=== PATIENT | male | born 1945 | race Caucasian/White ===

== ENCOUNTER 2022-04-07 06:18 | Inpatient (IN) ==
[2022-04-07] MEDS ORDERED: ONDANSETRON INJ 2 MG/ML 2 ML VIAL IV STA (06:38)
--- NOTE | 2022-04-07 06:44 | Emergency Department Note ---
Impression & Plan Abdominal pain, Nausea & vomiting ED Provider Note ED Provider Note NAME: HANNAH MIRELES AGE:76 SEX: Male : 1945 ARRIVES VIA: private vehicle INFORMANT: Patient ED PROVIDER(s): Page Weinberg DO CHIEF COMPLAINT: Abdominal pain, nausea HPI: This is a 76-year-old male presents emerged [place] due to concern for abdominal pain, nausea and vomiting that began earlier in the week. Patient states he underwent prostate surgery by Dr. Foster as an outpatient this past Friday. He states he felt well initially however by Friday started feeling nauseated and began to vomit that evening. He also states he noticed upper abdominal pain in addition to the lower abdominal pain he expected to have postop. He states this morning some of his emesis appeared more brown he did not notice any overt blood. He states he has had minimal to eat but has been trying to drink water to stay hydrated. He states he has had a bowel movement since surgery and it was loose although he states that is not uncommon for him a s he has IBS. No blood noted in his stools. States he has been urinating without difficulty, has intermittently been seeing blood which she was told to expect also. Patient denies any fevers or chills. PAST MEDICAL HISTORY:See Below PAST SURGICAL HISTORY:See Below FAMILY HISTORY:See Below SOCIAL HISTORY:See Below HOME MEDICATIONS:See Below ALLERGIES:See Below VITALS:See Below PHYSICAL EXAMINATION: GENERAL: alert, well appearing, well nourished, no distress, non-toxic EYE EXAM: normal conjunctiva, PERRL and EOM's grossly intact OROPHARYNX: no exudate, no erythema, lips, buccal mucosa, and tongue normal and mucous membranes are moist NECK: supple, no nuchal rigidity, no adenopathy, non-tender LUNGS: Clear to auscultation. Normal chest wall mechanics, no w/r/r HEART: no murmurs, S1 normal and S2 normal ABDOMEN: abdomen soft, non-tender, normo-active bowel sounds, no masses, no rebound or guarding. BACK: Back is symmetrical on inspection and there is no deformity, no midline tenderness, no CVA tenderness. SKIN: no rashes, petechiae, orbruising UPPER EXTREMITIES: upper extremities are grossly normal. FROM, nml pulses b/l. LOWER EXTREMITIES: No pitting edema. FROM, nml pulses b/l. NEURO EXAM: Normal sensorium, cranial nerves II-XII grossly intact, normal speech, no facial droop,nogross weakness of arms, no gross weakness of legs. Gross sensation intact. No ataxia. Vital Signs: reviewed and remarkable Differential Diagnosis: Differential diagnoses includes but is not limited to gastritis, peptic ulcer disease, GERD, gallbladder disease, pancreatitis, small bowel obstruction, ischemic bowel, irritable bowel disease, irritable bowel syndrome, appendicitis, diverticulitis, malignancy, hernia, urinary tract infection, perforation, infectious. MEDICAL DECISION MAKING: This is a 76 yo male who presents to the ER due to concern for nausea/vomiting and abdominal pain s/p prostate surgery. Patient stated he has been sipping water all week but hasn't had much to eat. He then developed vomiting in the last 48 hours. Labs sent and IV established. He was initially given 1 L NSS due to clinical dehydration and felt improved. Labs revealed significant leukocytos is and hyponatremia. He was given cefepime. CT a/p with nonspecific and post op changes. VS stable and pt afebrile. We discussed all results at bedside and need for inpatient evaluation and treatment. Patient mentating well and with a normal neuro exam throughout. Case discussed with hospitalist team. No further IVF given in the ER. No further vomiting. I suspect given increased free water intake, patient with likely dilutional hyponatremia. Consultation(s): [] ER Treatment Provided: See below 0912: Patient updated on results. 1002: [facility] Diagnostics Interpreted By Me: -ECG: [] -Cardiac Monitoring: An order was placed for continuous cardiac monitoring. The monitor shows a rate of 86 with normal sinus rhythm. -Laboratory studies: As stated above and show below. -Imaging studies: [] Triage Nursing Note Reviewed Prior/Outside Records Reviewed Procedures: [] Critical Care: Critical care of 38 min performed to assess and manage high likelihood of life-threatening sepsis and hyponatremia, involving labs and imaging performed with assessment to evaluate sepsis and hyponatremia diagnosis with frequent reassessment. This time includes bedside time, treatment discussions with patient/family/consultants, documentation time and excludes procedure time. Past Med/Surg History Medical History BPH with obstruction/lower urinary tract symptoms Hx of irritable bowel syndrome Hyperlipidemia Hypertension controlled Peripheral neuropathy toes Polycythemia vera Renal cyst no isses with, just monitoring Retinal tear Spleen enlarged Surgical History History of colonoscopy History of cystoscopy History of detached retina repair left History of esophagogastroduodenoscopy (EGD) History of left cataract surgery S/P TURP Family History (Updated 04/07/22 @ 12:53 by Rupali Barnes PA-C) Other Breast cancer Coronary heart disease Stroke Social History Smoking Status: Never smoker Second Hand Exposure: No; Hx Alcohol Use: Yes Alcohol type: wine Hx Substance Use: No Preferred Language: Burkinan Communication Ability: Effective Industrial Hygiene Engineer Required: No Beliefs That Will Affect Care: None marital status: Current Living Situation: Spouse current occupational status: retired How many Children do You have: 2 Feels Safe at Home: Yes Safety Concerns: Feels Safe At This Time Assistive Devices: None Allergies Allergies Allergy/AdvReac Type Severity Reaction Status Date / Time No Known Allergies Allergy Verified 11/28/21 07:40 Home Meds Home Medications Medication Instructions Recorded Confirmed aspirin 81 mg tablet,delayed 81 mg PO QAM 11/05/21 04/07/22 release (Adult Aspirin Regimen) atorvastatin 10 mg tablet 10 mg PO PM 11/05/21 04/07/22 cholecalciferol (vitamin D3) 50 50 mcg PO QAM 11/05/21 04/07/22 mcg (2,000 unit) capsule docusate sodium 100 mg capsule 100 mg PO DAILY PRN Constipation 11/05/21 04/07/22 (Colace) dutasteride 0.5 mg capsule 0.5 mg PO BID 11/05/21 04/07/22 polyethylene glycol 3350 17 17 g PO DAILY PRN Constipation 11/05/21 04/07/22 gram/dose oral powder (Miralax) ruxolitinib 10 mg tablet (Jakafi) 10 mg PO DAILY 11/05/21 04/07/22 valsartan 320 1 tab PO PM 11/05/21 04/07/22 mg-hydrochlorothiazide 25 mg tablet allopurinol 100 mg tablet 100 mg PO DAILY 04/07/22 04/07/22 tamsulosin 0.4 mg capsule 0.4 mg PO DAILY 04/07/22 04/07/22 Previous Rx's Medication Instructions Recorded betamethasone dipropionate 0.05 % 1 applic topical DAILY PRN skin 05/17/20 topical ointment irritation #15 grams Results & Data (ED) Vital Signs Vital Signs - 24 hr 04/07/22 06:25 04/07/22 07:00 04/07/22 09:00 Temperature 36.6 C Temperature Source Temporal Artery Scan Pulse Rate 106 H Pulse Rate [Right Finger] 83 93 H Pulse Rhythm [Right Finger] Regular Regular Pulse Strength [Right Finger] Normal Normal Respiratory Rate 18 18 18 Respiratory Effort / Characteristics Non-Labored Non-Labored Respiratory Depth Normal Normal Normal Respiratory Pattern Regular Regular Blood Pressure 183/77 H Blood Pressure [Right Arm] 160/77 H 138/63 Blood Pressure Mean 112 Blood Pressure Mean [Right Arm] 104 88 Blood Pressure Position [Right Arm] Lying Pulse Oximetry 98 97 97 Oxygen Delivery Method Room Air Room Air Room Air Sepsis Recent Fever Within 48 Hours No Sepsis New/Unexplained Change in Mental Status N/A Sepsis Action Taken by Nursing No Action Required 04/07/22 11:00 Temperature Temperature Source Pulse Rate Pulse Rate [Right Finger] 86 Pulse Rhythm [Right Finger] Regular Pulse Strength [Right Finger] Normal Respiratory Rate 18 Respiratory Effort / Characteristics Non-Labored Respiratory Depth Normal Respiratory Pattern Regular Blood Pressure Blood Pressure [Right Arm] 137/71 Blood Pressure Mean Blood Pressure Mean [Right Arm] 93 Blood Pressure Position [Right Arm] Lying Pulse Oximetry 96 Oxygen Delivery Method Room Air Sepsis Recent Fever Within 48 Hours Sepsis New/Unexplained Change in Mental Status Sepsis Action Taken by Nursing Laboratory Data 04/07/22 06:45 04/07/22 06:45 Lab Results 04/07/22 04/07/22 04/07/22 Range/Units 06:30 06:45 06:45 WBC 23.54 H (4.8-10.8) K/ul RBC 4.35 L (4.63-6.08) M/uL Hgb 13.9 L (14.0-18.0) g/dl Hct 36.9 L (40.1-51.0) % MCV 84.8 (80.0-100.0) fL MCH 32.0 (25.0-34.0) pg MCHC 37.7 H (32.0-36.0) g/dL RDW Std Deviation 45.5 (36.4-46.3) fL RDW Coeff of Micki 14.8 H (11.5-14.5) % Plt Count 459 H (130-400) K/uL MPV 11.3 (9.4-12.4) fL Immature Gran % (Auto) 3.3 % Neut % (Auto) 85.4 % Lymph % (Auto) 5.9 % Meigs % (Auto) 4.3 % Eos % (Auto) 0.3 % Baso % (Auto) 0.8 % Neut # (Auto) 20.14 H (1.4-6.5) K/uL Lymph # (Auto) 1.38 (1.2-3.4) K/uL Meigs # (Auto) 1.01 H (0.24-0.82) K/uL Eos # (Auto) 0.06 (0-0.50) K/uL Baso # (Auto) 0.18 (0-0.2) K/uL Immature Gran # (Auto) 0.77 H (0.00-0.02) K/uL Polychromasia 1+ Tear Drop Cells 1+ Echinocytes 2+ Sodium 115 L* (136-145) mmol/L Potassium 3.6 (3.5-5.1) mmol/L Chloride 81 L (98-107) mmol/L Carbon Dioxide 21 (21-32) mmol/L Anion Gap 13 H (3-11) BUN 19 (6-23) mg/dl Creatinine 1.08 (0.6-1.4) mg/dl Est Cr Clr Drug Dosing 52.7 ml/min Est GFR ( Amer) 75.8 ml/min Est GFR (Non-Af Amer) 65.4 ml/min BUN/Creatinine Ratio 17.6 (10-20) Glucose 105 H (70-99(Fasting)) mg/dl Osmolality (280-300) mOsm/kg Lactate (0.4-2.0) mmol/L Calcium 9.0 (8.5-10.1) mg/dl Magnesium 1.9 (1.7-2.4) mg/dl Total Bilirubin 0.9 (0.2-1.0) mg/dl AST 31 (13-39) U/L ALT 12 (7-52) U/L Alkaline Phosphatase 80 (34-104) U/L Total Protein 6.9 (6.0-8.3) gm/dl Albumin 4.5 (3.4-5.0) gm/dl Globulin 2.4 L (2.5-4.0) gm/dl Albumin/Globulin Ratio 1.9 (0.9-2) Lipase 7 L (11-82) U/L Procalcitonin (0-0.5) ng/ml TSH (0.300-4.500) uIu/ml Urine Color Yellow Urine Appearance Clear (Clear) Urine pH 6.5 (4.5-7.5) Ur Specific [place] 1.020 (1.000-1.030) Urine Protein 2+ H (Negative) Urine Glucose (UA) Negative (Negative) Urine Ketones 4+ H (Negative) Urine Blood 3+ H (Negative) Urine Nitrite Negative (Negative) Urine Bilirubin Negative (Negative) Urine Urobilinogen Negative (Negative) Ur Leukocyte Esterase Trace H (Negative) Urine WBC (Auto) 1-5 (0-5) /hpf Urine RBC (Auto) >30 H (0-4) /hpf U Hyaline Cast (Auto) 1-5 (0-5) /lpf U Epithel Cells (Auto) 10-20 H (0-5) /lpf Urine Bacteria (Auto) Negative (Negative) Urine Osmolality (500-800) mOsm/kg Ur Random Sodium mmol/L SARS-CoV-2, RNA, NAAT (NEGATIVE) 04/07/22 04/07/22 04/07/22 Range/Units 09:41 09:41 09:41 WBC (4.8-10.8) K/ul RBC (4.63-6.08) M/uL Hgb (14.0-18.0) g/dl Hct (40.1-51.0) % MCV (80.0-100.0) fL MCH (25.0-34.0) pg MCHC (32.0-36.0) g/dL RDW Std Deviation (36.4-46.3) fL RDW Coeff of Micki (11.5-14.5) % Plt Count (130-400) K/uL MPV (9.4-12.4) fL Immature Gran % (Auto) % Neut % (Auto) % Lymph % (Auto) % Meigs % (Auto) % Eos % (Auto) % Baso % (Auto) % Neut # (Auto) (1.4-6.5) K/uL Lymph # (Auto) (1.2-3.4) K/uL Meigs # (Auto) (0.24-0.82) K/uL Eos # (Auto) (0-0.50) K/uL Baso # (Auto) (0-0.2) K/uL Immature Gran # (Auto) (0.00-0.02) K/uL Polychromasia Tear Drop Cells Echinocytes Sodium (136-145) mmol/L Potassium (3.5-5.1) mmol/L Chloride (98-107) mmol/L Carbon Dioxide (21-32) mmol/L Anion Gap (3-11) BUN (6-23) mg/dl Creatinine (0.6-1.4) mg/dl Est Cr Clr Drug Dosing ml/min Est GFR ( Amer) ml/min Est GFR (Non-Af Amer) ml/min BUN/Creatinine Ratio (10-20) Glucose (70-99(Fasting)) mg/dl Osmolality 245 L (280-300) mOsm/kg Lactate 1.0 (0.4-2.0) mmol/L Calcium (8.5-10.1) mg/dl Magnesium (1.7-2.4) mg/dl Total Bilirubin (0.2-1.0) mg/dl AST (13-39) U/L ALT (7-52) U/L Alkaline Phosphatase (34-104) U/L Total Protein (6.0-8.3) gm/dl Albumin (3.4-5.0) gm/dl Globulin (2.5-4.0) gm/dl Albumin/Globulin Ratio (0.9-2) Lipase (11-82) U/L Procalcitonin 0.06 (0-0.5) ng/ml TSH (0.300-4.500) uIu/ml Urine Color Urine Appearance (Clear) Urine pH (4.5-7.5) Ur Specific [place] (1.000-1.030) Urine Protein (Negative) Urine Glucose (UA) (Negative) Urine Ketones (Negative) Urine Blood (Negative) Urine Nitrite (Negative) Urine Bilirubin (Negative) Urine Urobilinogen (Negative) Ur Leukocyte Esterase (Negative) Urine WBC (Auto) (0-5) /hpf Urine RBC (Auto) (0-4) /hpf U Hyaline Cast (Auto) (0-5) /lpf U Epithel Cells (Auto) (0-5) /lpf Urine Bacteria (Auto) (Negative) Urine Osmolality (500-800) mOsm/kg Ur Random Sodium mmol/L SARS-CoV-2, RNA, NAAT (NEGATIVE) 04/07/22 04/07/22 04/07/22 Range/Units 09:41 10:40 10:52 WBC (4.8-10.8) K/ul RBC (4.63-6.08) M/uL Hgb (14.0-18.0) g/dl Hct (40.1-51.0) % MCV (80.0-100.0) fL MCH (25.0-34.0) pg MCHC (32.0-36.0) g/dL RDW Std Deviation (36.4-46.3) fL RDW Coeff of Micki (11.5-14.5) % Plt Count (130-400) K/uL MPV (9.4-12.4) fL Immature Gran % (Auto) % Neut % (Auto) % Lymph % (Auto) % Meigs % (Auto) % Eos % (Auto) % Baso % (Auto) % Neut # (Auto) (1.4-6.5) K/uL Lymph # (Auto) (1.2-3.4) K/uL Me[place] # (Auto) (0.24-0.82) K/uL Eos # (Auto) (0-0.50) K/uL Baso # (Auto) (0-0.2) K/uL Immature Gran # (Auto) (0.00-0.02) K/uL Polychromasia Tear Drop Cells Echinocytes Sodium 114 L* (136-145) mmol/L Potassium 4.1 (3.5-5.1) mmol/L Chloride 83 L (98-107) mmol/L Carbon Dioxide 24 (21-32) mmol/L Anion Gap 7 (3-11) BUN 18 (6-23) mg/dl Creatinine 0.97 (0.6-1.4) mg/dl Est Cr Clr Drug Dosing 58.7 ml/min Est GFR ( Amer) 86.3 ml/min Est GFR (Non-Af Amer) 74.5 ml/min BUN/Creatinine Ratio 18.6 (10-20) Glucose 102 H (70-99(Fasting)) mg/dl Osmolality (280-300) mOsm/kg Lactate (0.4-2.0) mmol/L Calcium 8.5 (8.5-10.1) mg/dl Magnesium (1.7-2.4) mg/dl Total Bilirubin (0.2-1.0) mg/dl AST (13-39) U/L ALT (7-52) U/L Alkaline Phosphatase (34-104) U/L Total Protein (6.0-8.3) gm/dl Albumin (3.4-5.0) gm/dl Globulin (2.5-4.0) gm/dl Albumin/Globulin Ratio (0.9-2) Lipase (11-82) U/L Procalcitonin (0-0.5) ng/ml TSH 1.207 (0.300-4.500) uIu/ml Urine Color Urine Appearance (Clear) Urine pH (4.5-7.5) Ur Specific [place] (1.000-1.030) Urine Protein (Negative) Urine Glucose (UA) (Negative) Urine Ketones (Negative) Urine Blood (Negative) Urine Nitrite (Negative) Urine Bilirubin (Negative) Urine Urobilinogen (Negative) Ur Leukocyte Esterase (Negative) Urine WBC (Auto) (0-5) /hpf Urine RBC (Auto) (0-4) /hpf U Hyaline Cast (Auto) (0-5) /lpf U Epithel Cells (Auto) (0-5) /lpf Urine Bacteria (Auto) (Negative) Urine Osmolality (500-800) mOsm/kg Ur Random Sodium mmol/L SARS-CoV-2, RNA, NAAT NEGATIVE (NEGATIVE) 04/07/22 04/07/22 Range/Units 11:47 11:47 WBC (4.8-10.8) K/ul RBC (4.63-6.08) M/uL Hgb (14.0-18.0) g/dl Hct (40.1-51.0) % MCV (80.0-100.0) fL MCH (25.0-34.0) pg MCHC (32.0-36.0) g/dL RDW Std Deviation (36.4-46.3) fL RDW Coeff of Micki (11.5-14.5) % Plt Count (130-400) K/uL MPV (9.4-12.4) fL Immature Gran % (Auto) % Neut % (Auto) % Lymph % (Auto) % [place] % (Auto) % Eos % (Auto) % Baso % (Auto) % Neut # (Auto) (1.4-6.5) K/uL Lymph # (Auto) (1.2-3.4) K/uL [place] # (Auto) (0.24-0.82) K/uL Eos # (Auto) (0-0.50) K/uL Baso # (Auto) (0-0.2) K/uL Immature Gran # (Auto) (0.00-0.02) K/uL Polychromasia Tear Drop Cells Echinocytes Sodium (136-145) mmol/L Potassium (3.5-5.1) mmol/L Chloride (98-107) mmol/L Carbon Dioxide (21-32) mmol/L Anion Gap (3-11) BUN (6-23) mg/dl Creatinine (0.6-1.4) mg/dl Est Cr Clr Drug Dosing ml/min Est GFR ( Amer) ml/min Est GFR (Non-Af Amer) ml/min BUN/Creatinine Ratio (10-20) Glucose (70-99(Fasting)) mg/dl Osmolality (280-300) mOsm/kg Lactate (0.4-2.0) mmol/L Calcium (8.5-10.1) mg/dl Magnesium (1.7-2.4) mg/dl Total Bilirubin (0.2-1.0) mg/dl AST (13-39) U/L ALT (7-52) U/L Alkaline Phosphatase (34-104) U/L Total Protein (6.0-8.3) gm/dl Albumin (3.4-5.0) gm/dl Globulin (2.5-4.0) gm/dl Albumin/Globulin Ratio (0.9-2) Lipase (11-82) U/L Procalcitonin (0-0.5) ng/ml TSH (0.300-4.500) uIu/ml Urine Color Urine Appearance (Clear) Urine pH (4.5-7.5) Ur Specific [place] (1.000-1.030) Urine Protein (Negative) Urine Glucose (UA) (Negative) Urine Ketones (Negative) Urine Blood (Negative) Urine Nitrite (Negative) Urine Bilirubin (Negative) Urine Urobilinogen (Negative) Ur Leukocyte Esterase (Negative) Urine WBC (Auto) (0-5) /hpf Urine RBC (Auto) (0-4) /hpf U Hyaline Cast (Auto) (0-5) /lpf U Epithel Cells (Auto) (0-5) /lpf Urine Bacteria (Auto) (Negative) Urine Osmolality 450 L (500-800) mOsm/kg Ur Random Sodium 58 mmol/L SARS-CoV-2, RNA, NAAT (NEGATIVE) Administered Medications Pantoprazole Sodium 40 mg/ (Syringe) 10 mls @ 5 mls/min IV DAILY@1100 [facility] Stop: 05/07/22 16:29 Last Admin: 04/07/22 17:00 Dose: 5 mls/min Documented By: GENE Dextrose (D5w) 1,000 mls @ 75 mls/hr IV .[id number] [facility] Stop: 05/07/22 16:44 Last Infusion: 04/07/22 19:41 Dose: 0 mls/hr Documented By: Admin: 04/07/22 16:53 Dose: 75 mls/hr Documented By: GENE Miscellaneous (Icu Protocol For Hyperglycemia) 1 each N/A ACHS [facility] Stop: 04/09/22 16:29 Last Admin: 04/07/22 16:44 Dose: 1 each Documented By: GENE Discontinued Medications Sodium Chloride (Nss 1000ml) 1,000 mls @ 250 mls/hr IV .Q4H [facility] Stop: 05/07/22 06:44 Last Infusion: 04/07/22 11:00 Dose: 0 mls/hr Documented By: Admin: 04/07/22 10:17 Dose: 250 mls/hr Documented By: Infusion: 04/07/22 10:17 Dose: 250 mls/hr Documented By: Admin: 04/07/22 06:57 Dose: 250 mls/hr Documented By: DANNY Cefepime HCl (Maxipime) 2,000 mg in 20 mls @ 5 mls/min IV NOW STA; Protocol Stop: 04/07/22 08:59 Last Admin: 04/07/22 10:17 Dose: 5 mls/min Documented By: DANNY Vancomycin HCl 1,500 mg/ (Sodium Chloride) 530 mls @ 200 mls/hr IV ONE ONE; Protocol Stop: 04/07/22 16:38 Last Infusion: 04/07/22 18:30 Dose: 0 mls/hr Documented By: Admin: 04/07/22 14:16 Dose: 200 mls/hr Documented By: GENE Ioversol (Optiray 350 100ml) 90 ml IV ONCE ONE Stop: 04/07/22 08:20 Last Admin: 04/07/22 08:20 Dose: 90 ml Documented By: ESCOBAR Ondansetron HCl (Ondansetron Inj 2 Mg/Ml 2 Ml Vial) 4 mg IV NOW STA Stop: 04/07/22 06:39 Last Admin: 04/07/22 06:57 Dose: 4 mg Documented By: DANNY Imaging Data Radiologist's Impression: Abdomen/Pelvis CT 04/07/22 06:[address] WITH IV CONTRAST CT DOSE: 479.70 mGy.cm HISTORY: Acute generalized abdominal pain with nausea and vomiting abd pain, n/v, post op prostate surg TECHNIQUE: Multiaxial CT images of the abdomen and pelvis were performed fo llowing the IV administration of 90 cc of Optiray, A dose lowering technique was utilized adhering to the principles of ALARA. COMPARISON STUDY: None. FINDINGS: Study is degraded by respiratory motion artifact. Trace pleural effusions. Mild intralobular septal thickening of the lung bases. No pneumatosis or pneumoperitoneum. Spleen is enlarged measuring up to 16.3 cm in length. Moderately atrophic pancreas. Punctate left adrenal calcification. Degenerative glands are otherwise unremarkable. Unremarkable gallbladder and liver. Patency of the hepatic and portal veins. Bilateral renal cysts measure up to approximately 9 cm on the right and 4.3 cm on the left. No hydronephrosis. Urinary bladder wall thickening with partial distention. A focus of air is noted within the urinary bladder lumen. Perivesicular stranding. Enlarged heterogeneous prostate measures up to approximately 5 cm. Suggested TURP defect of the prostate with mild adjacent inflammation and trace free pelvic fluid. No drainable fluid collection. Small fat filled left inguinal hernia. Atherosclerosis of the aorta. No lymphadenopathy. No bowel obstruction. Colonic diverticulosis. Moderate colonic fecal retention. The appendix is suboptimally visualized. No CT evidence of acute appendicitis. Unremarkable soft tissues. Degenerative changes of the spine, pelvis and hips. Subcentimeter sclerotic foci of the pelvis. There is severe intervertebral disc space narrowing at the L2-L3 level. IMPRESSION: 1. Suggested TURP defect of the prostate. Mild adjacent inflammatory stranding with trace free pelvic fluid are likely expected postprocedural changes. 2. Partial distention of the urinary bladder with mild wall thickening. Air within the bladder lumen may be secondary to instrumentation versus infection. Correlate with urinalysis. 3. Trace pleural effusions with questioned mild pulmonary edema. 4. Moderate splenomegaly. 5. No bowel obstruction or bowel wall thickening. 6. Moderate colonic fecal retention. ACT 112: Negative or not required by law. The above report was generated using voice recognition software. It may contain grammatical, syntax or spelling errors. Electronically signed by: Riaz Deal M.D. 04/07/2022 8:[address] 04/07/22 10:57 CT head/brain wo con CLINICAL HISTORY: 76 years-old Male with RHODES. Acute headache TECHNIQUE: Multiple axial CT images of the head were obtained without contrast. A dose lowering technique was utilized adhering to the principles of ALARA. CT DOSE: 614.27 mGy.cm COMPARISON: None. FINDINGS: No acute intracranial hemorrhage, midline shift, intracranial mass, hydrocephalus, territorial ischemia or abnormal extra-axial collection. Mild involutional changes. Subtle white matter hypodensities suggest chronic jazz rovascular ischemic disease. The calvarium is intact. Prior bilateral lens repair. The paranasal sinuses, mastoid air cells, and middle ear cavities are clear. IMPRESSION: No acute intracranial abnormality. ACT 112: Negative or not required by law. The above report was generated using voice recognition software. It may contain grammatical, syntax or spelling errors. Electronically signed by: Riaz Deal M.D. 04/07/2022 11:46 AM Discharge Plan Visit Data Chief Complaint: Vomiting Stated Complaint: VOMIT, HEADACHES, DIZZY ED Provider: Page Weinberg Discharge Problem: Abdominal pain, Nausea & vomiting Patient Disposition: Admitted As Inpatient Discharge Instructions Interventions: ED Discharge Assessment Last Done: 04/07/22 13:07
[2022-04-07] MEDS: SODIUM CHLORIDE 0.9% 1000ML 1,000 ML IV SCH ×2 (06:57→10:17)
[2022-04-07 07:06] LABS: Hematocrit (blood only) 36.9 % (40.1-51.0); Hemoglobin 13.9 g/dl (14.0-18.0); Mean Corpuscular Hgb Conc 37.7 g/dL (32.0-36.0); Mean Corpuscular Volume 84.8 fL (80.0-100.0); Mean Platelet Volume 11.3 fL (9.4-12.4); Platelet Count 459 K/uL (130-400); RDW Coefficient of Variation 14.8 % (11.5-14.5); RDW Standard Deviation 45.5 fL (36.4-46.3); Red Blood Count 4.35 M/uL (4.63-6.08); White Blood Count 23.54 K/ul (4.8-10.8)
[2022-04-07 07:08] LABS: Appearance Urine Clear (Clear); Bacteria Urine Automated Negative (Negative); Bilirubin Urine Negative (Negative); Blood Urine 3+ (Negative); Color Urine Yellow; Glucose Urine UA Negative (Negative); Ketones Urine 4+ (Negative); Leukocyte Esterase Urine Trace (Negative); Nitrite Urine Negative (Negative); Protein Urine 2+ (Negative); RBC Urine Automated >30 /hpf (0-4); Urobilinogen Urine Negative (Negative); pH Urine 6.5 (4.5-7.5)
[2022-04-07 07:32] LABS: Basophils # (auto) 0.18 K/uL (0-0.2); Basophils % (auto) 0.8 %; Echinocytes 2+; Eosinophils # (auto) 0.06 K/uL (0-0.50); Eosinophils % (auto) 0.3 %; Immature Granulocytes # (auto) 0.77 K/uL (0.00-0.02); Immature Granulocytes % (auto) 3.3 %; Lymphocytes # (auto) 1.38 K/uL (1.2-3.4); Lymphocytes % (auto) 5.9 %; Monocytes # (auto) 1.01 K/uL (0.24-0.82); Monocytes % (auto) 4.3 %; Neutrophils # (auto) 20.14 K/uL (1.4-6.5); Neutrophils % (auto) 85.4 %; Polychromasia 1+; Tear Drop Cells 1+
[2022-04-07 07:48] LABS: Albumin Globulin Ratio 1.9 (0.9-2); Albumin Level 4.5 gm/dl (3.4-5.0); BUN Creatinine Ratio 17.6 (10-20); Bilirubin,Total 0.9 mg/dl (0.2-1.0); Creatinine Clr Calc Pharmacy 52.7 ml/min; Est GFR (African American) 75.8 ml/min; Est GFR (Non-African American) 65.4 ml/min; Globulin 2.4 gm/dl (2.5-4.0); Magnesium 1.9 mg/dl (1.7-2.4); Potassium 3.6 mmol/L (3.5-5.1); Total Protein 6.9 gm/dl (6.0-8.3)
[2022-04-07] MEDS ORDERED: OPTIRAY 350 100ml IV ONE (08:19)
--- NOTE | 2022-04-07 08:50 | CT Scan Report ---
ABDOMEN AND PELVIS CT WITH IV CONTRAST CT DOSE: 479.70 mGy.cm HISTORY: Acute generalized abdominal pain with nausea and vomiting abd pain, n/v, post op prostate s urg TECHNIQUE: Multiaxial CT images of the abdomen and pelvis were performed following the IV administrat ion of 90 cc of Optiray, A dose lowering technique was utilized adhering to the principles of ALARA. COMPARISON STUDY: None. FINDINGS: Study is degraded by respiratory motion artifact. Trace pleural effusions. Mild intralobula r septal thickening of the lung bases. No pneumatosis or pneumoperitoneum. Spleen is enlarged measuri ng up to 16.3 cm in length. Moderately atrophic pancreas. Punctate left adrenal calcification. Degene rative glands are otherwise unremarkable. Unremarkable gallbladder and liver. Patency of the hepatic and portal veins. Bilateral renal cysts measure up to approximately 9 cm on the right and 4.3 cm on the left. No hydron ephrosis. Urinary bladder wall thickening with partial distention. A focus of air is noted within the urinary bladder lumen. Perivesicular stranding. Enlarged heterogeneous prostate measures up to appro ximately 5 cm. Suggested TURP defect of the prostate with mild adjacent inflammation and trace free p elvic fluid. No drainable fluid collection. Small fat filled left inguinal hernia. Atherosclerosis of the aorta. No lymphadenopathy. No bowel obstruction. Colonic diverticulosis. Moderate colonic fecal retention. The appendix is suboptimally visualized. No CT evidence of acute appendicitis. Unremarkable soft tissues. Degenerative changes of the spine, pelvis and hips. Subcentimeter scleroti c foci of the pelvis. There is severe intervertebral disc space narrowing at the L2-L3 level. IMPRESSION: 1. Suggested TURP defect of the prostate. Mild adjacent inflammatory stranding with trace free pelvic fluid are likely expected postprocedural changes. 2. Partial distention of the urinary bladder with mild wall thickening. Air within the bladder lumen may be secondary to instrumentation versus infection. Correlate with urinalysis. 3. Trace pleural effusions with questioned mild pulmonary edema. 4. Moderate splenomegaly. 5. No bowel obstruction or bowel wall thickening. 6. Moderate colonic fecal retention. ACT 112: Negative or not required by law. The above report was generated using voice recognition software. It may contain grammatical, syntax o r spelling errors. Electronically signed by: Riaz Deal M.D. 04/07/2022 8:48 AM
[2022-04-07] MEDS ORDERED: CEFEPIME 2,000 MG/20 ML VIAL IV STA (08:56)
--- NOTE | 2022-04-07 10:26 | History & Physical Report ---
Date of Service April 07, 2022 Assessment & Plan (1) Hyponatremia: Plan: Patient with nausea, vomiting, decreased food intake. Reported increased fluid intake earlier in the week. S/p TURP 6 days ago. Headache times several days has since improved in ER CT head: No acute intracranial abnormality Na: 115 In ER given 1L NSS Urine sodium, urine osmolality, urine osmolality, TSH pending Repeat Na: 114 Outpatient chart review had sodium of 135 on 03/06/2022 and 127 on 02/01/2022 BMP every 4 hours Plan to hold HCTZ Nephrology consult. Discussed with Dr Ho. Recommends BMP Q4H. If Na correcting>2mmol per 4 hours recommends starting D5W at 75 ml/hr and repeat Na in 4 hours and if stable to hold further D5W and continue this sequence every 4H Target sodium of 121 at 6 AM tomorrow morning (2) Nausea & vomiting: (3) Abdominal pain: Plan: 3 days nausea, vomiting. Diffuse abdominal discomfort s/p TURP 6 days ago WBC: 23 (has been 15-20 in the past 24 months per outpatient chart review). Lactate WNL. UA: 3+ blood, trace leuk esterase,> 30 RBC, 10-[address] abdomen pelvis: 1. Suggested TURP defect of the prostate. Mild adjacent inflammatory stranding with trace free pelvic fluid are likely expected postprocedural changes. 2. Partial distention of the urinary bladder with mild wall thickening. Air within the bladder lumen may be secondary to instrumentation versus infection. Correlate with urinalysis. 3. Trace pleural effusions with questioned mild pulmonary edema. 4. Moderate splenomegaly. 5. No bowel obstruction or bowel wall thickening. 6. Moderate colonic fecal retention. Treat for possible UTI Urine culture pending Blood cultures pending Cover with cefepime, vancomycin empirically CBC in a.m. (4) BPH with obstruction/lower urinary tract symptoms: (5) S/P TURP: Plan: S/P GLTURP on 04/01/[address] Foster urology G. Was D/C with catheter that was removed On 04/05/2022 after voiding trial. Has been having intermittent hematuria, dysuria. Feels urine stream strength is same as it was pre-surgery. Had prophylaxis with 3 days of Bactrim UA: Possible UTI Urine culture pending Blood culture pending In ER given cefepime Continue cefepime, vancomycin On gelastic, tamsulosin at home Reached out to Dr Foster, urology, [facility] via [facility]. Discussed that hematuria is to be expected, imaging studies are expected in his postoperative status. Recommended covering with broad-spectrum antibiotics until cultures resulted, 7 to 10-day course. If patient emptying bladder can avoid catheter however if has post residual void with drain. Urology consult (6) Hypertension: Plan: Stable Continue valsartan with holding parameters Hold HCTZ (7) Polycythemia vera: Plan: H/H: 13.9/36. PLT: 459 (was 480 on 03/25/2022) On ruxolitinib Follows with Hematology - Dr Pastor. Also follows [facility], Dr Clark. Receives phlebotomy if hematocrit greater than 45 DVT Prophylaxis SCDs Full Code as per discussion with pt Follows with Dr Wheeler for routine care Pt was seen and care coordinated with Dr Davidson. See addendum I spent a total of 90 minutes reviewing notes, outpatient records, labs, medication, coordinating, documenting and providing care for this patient excluding time spent in the performance of separately billed services. History of Present Illness Chief Complaint: nausea, vomiting Primary Care Provider: Severo Wheeler MD Patient is 76-year-old male with PMH BPH, HTN, polycythemia vera presented to ER with c/o nausea and vomiting x 3 days. History obtained from patient, patient's , chart review. S/P GLTURP for BPH on 04/01/[address] Foster urology [facility]. Patient was discharged with catheter. Had 3 days of Bactrim.On 04/05/2022 Catheter was removed after voiding trial. Has been having intermittent hematuria. Feels urine stream strength is same as it was pre-surgery. Having some dysuria. Patient states hiccups started 4 days ago. Having several episodes daily lasting up to 1 hour. He wasn't eating much. He states having lower abdominal discomfort that he felt was normal post-op. Also c/o diffuse abdominal discomfort described as bloating and aching past couple of days. Reports did not eat for past 2 days. Previously was drinking more water. Past 2-3 days having vomiting. Last night had brown color emesis. Last BM yesterday described as softer. He took stool softener after surgery. States having generalized RHODES this week. Since here in the ER RHODES has resolved. Also c/o generalized weakness. Denies falls. Denies fever/chills, diaphoresis, hematochezia, melena, syncope, vision changes, neck pain, CP, SOB, orthopnea, palpitations, cough, sore throat, choking, otalgia, rhinorrhea, paresthesias, extremity edema, rashes. Allergies Allergy/AdvReac Type Severity Reaction Status Date / Time No Known Allergies Allergy Verified 11/28/21 07:40 Home Medications Medication Instructions Recorded Confirmed Type betamethasone dipropionate 0.05 % 1 applic topical DAILY PRN skin 05/17/20 04/07/22 Rx topical ointment irritation #15 grams aspirin 81 mg tablet,delayed 81 mg PO QAM 11/05/21 04/07/22 History release (Adult Aspirin Regimen) atorvastatin 10 mg tablet 10 mg PO PM 11/05/21 04/07/22 History cholecalciferol (vitamin D3) 50 50 mcg PO QAM 11/05/21 04/07/22 History mcg (2,000 unit) capsule docusate sodium 100 mg capsule 100 mg PO DAILY PRN Constipation 11/05/21 04/07/22 History (Colace) dutasteride 0.5 mg capsule 0.5 mg PO DAILY 11/05/21 04/08/22 History polyethylene glycol 3350 17 17 g PO DAILY PRN Constipation 11/05/21 04/07/22 History gram/dose oral powder (Miralax) ruxolitinib 10 mg tablet (Jakafi) 10 mg PO DAILY 11/05/21 04/07/22 History valsartan 320 1 tab PO PM 11/05/21 04/07/22 History mg-hydrochlorothiazide 25 mg tablet allopurinol 100 mg tablet 100 mg PO DAILY 04/07/22 04/07/22 History tamsulosin 0.4 mg capsule 0.4 mg PO DAILY 04/07/22 04/07/22 History Past Med/Surg History Medical History BPH with obstruction/lower urinary tract symptoms Hx of irritable bowel syndrome Hyperlipidemia Hypertension controlled Peripheral neuropathy toes Polycythemia vera Renal cyst no isses with, just monitoring Retinal tear Spleen enlarged Surgical History History of colonoscopy History of cystoscopy History of detached retina repair left History of esophagogastroduodenoscopy (EGD) History of left cataract surgery S/P TURP Family History Other Breast cancer Coronary heart disease Stroke Social History Smoking Status: Never smoker Second Hand Exposure: No; Hx Alcohol Use: Yes Alcohol type: wine Hx Substance Use: No Preferred Language: Albanian Communication Ability: Effective 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 Beliefs That Will Affect Care: None marital status: Current Living Situation: Spouse current occupational status: retired How many Children do You have: 2 Feels Safe at Home: Yes Safety Concerns: Feels Safe At This Time Assistive Devices: None Review of Systems Review of Systems: All systems reviewed & are unremarkable except as noted in HPI & below Physical Exam Physical Exam: General: no acute distress, WDWN Head: normocephalic, atraumatic Eyes: PERRL, EOM's intact, conjunctiva non-injected, anicteric ENT: +Hard of hearing, normal inspection external ears, nose, mucous membranes mildly dry Neck: supple, trachea midline Lungs: clear, no respiratory distress, no wheezing/rhonchi/rales CV: RRR, no murmur, no pretibial edema Abd: normal BS, soft, non-tender, No CVA tenderness to percussion Ext: no cyanosis, no calf tenderness Neuro: A&O x 3, no focal deficits noted, normal affect Skin: warm, dry Results & Data Results & Data ([facility]) Vital Signs (Past 12 Hours) Vital Signs Temp Pulse Pulse Resp BP BP Pulse Ox 04/07/22 07:00 83 18 160/77 H 97 04/07/22 06:25 36.6 C 106 H 18 183/77 H 98 O2 Del Method 04/07/22 07:00 Room Air 04/07/22 06:25 Room Air Laboratory Results Short CBC 04/07/22 Range/Units 06:45 WBC 23.54 H (4.8-10.8) K/ul Hgb 13.9 L (14.0-18.0) g/dl Hct 36.9 L (40.1-51.0) % Plt Count 459 H (130-400) K/uL BMP 04/07/22 04/07/22 06:45 10:52 Sodium 115 L* 114 L* Potassium 3.6 4.1 Chloride 81 L 83 L Carbon Dioxide 21 24 BUN 19 18 Creatinine 1.08 0.97 Glucose 105 H 102 H Calcium 9.0 8.5 Liver Function 04/07/22 Range/Units 06:45 Total Bilirubin 0.9 (0.2-1.0) mg/dl AST 31 (13-39) U/L ALT 12 (7-52) U/L Alkaline Phosphatase 80 (34-104) U/L Albumin 4.5 (3.4-5.0) gm/dl Urine 04/07/22 Range/Units 06:30 Urine Color Yellow Urine Appearance Clear (Clear) Urine pH 6.5 (4.5-7.5) Ur Specific [place] 1.020 (1.000-1.030) Urine Protein 2+ H (Negative) Urine Glucose (UA) Negative (Negative) Diagnostic Findings Abdomen/Pelvis CT 04/07/22 06:[address] WITH IV CONTRAST CT DOSE: 479.70 mGy.cm HISTORY: Acute generalized abdominal pain with nausea and vomiting abd pain, n/v, post op prostate surg TECHNIQUE: Multiaxial CT images of the abdomen and pelvis were performed following the IV administration of 90 cc of Optiray, A dose lowering technique was utilized adhering to the principles of ALARA. COMPARISON STUDY: None. FINDINGS: Study is degraded by respiratory motion artifact. Trace pleural effusions. Mild intralobular septal thickening of the lung bases. No pneumatosis or pneumoperitoneum. Spleen is enlarged measuring up to 16.3 cm in length. Moderately atrophic pancreas. Punctate left adrenal calcification. Degenerative glands are otherwise unremarkable. Unremarkable gallbladder and liver. Patency of the hepatic and portal veins. Bilateral renal cysts measure up to approximately 9 cm on the right and 4.3 cm on the left. No hydronephrosis. Urinary bladder wall thickening with partial distention. A focus of air is noted within the urinary bladder lumen. Perivesicular stranding. Enlarged heterogeneous prostate measures up to approximately 5 cm. Suggested TURP defect of the prostate with mild adjacent inflammation and trace free pelvic fluid. No drainable fluid collection. Small fat filled left inguinal hernia. Atherosclerosis of the aorta. No lymphadenopathy. No bowel obstruction. Colonic diverticulosis. Moderate colonic fecal retention. The appendix is suboptimally visualized. No CT evidence of acute appendicitis. Unremarkable soft tissues. Degenerative changes of the spine, pelvis and hips. Subcentimeter sclerotic foci of the pelvis. There is severe intervertebral disc space narrowing at the L2-L3 level. IMPRESSION: 1. Suggested TURP defect of the prostate. Mild adjacent inflammatory stranding with trace free pelvic fluid are likely expected postprocedural changes. 2. Partial distention of the urinary bladder with mild wall thickening. Air within the bladder lumen may be secondary to instrumentation versus infection. Correlate with urinalysis. 3. Trace pleural effusions with questioned mild pulmonary edema. 4. Moderate splenomegaly. 5. No bowel obstruction or bowel wall thickening. 6. Moderate colonic fecal retention. ACT 112: Negative or not required by law. The above report was generated using voice recognition software. It may contain grammatical, syntax or spelling errors. Electronically signed by: Riaz Deal M.D. 04/07/2022 8:[address] 04/07/22 10:57 CT head/brain wo con CLINICAL HISTORY: 76 years-old Male with RHODES. Acute headache TECHNIQUE: Multiple axial CT images of the head were obtained without contrast. A dose lowering technique was utilized adhering to the principles of ALARA. CT DOSE: 614.27 mGy.cm COMPARISON: None. FINDINGS: No acute intracranial hemorrhage, midline shift, intracranial mass, hydrocephalus, territorial ischemia or abnormal extra-axial collection. Mild involutional changes. Subtle white matter hypodensities suggest chronic microvascular ischemic disease. The calvarium is intact. Prior bilateral lens repair. The paranasal sinuses, mastoid air cells, and middle ear cavities are clear. IMPRESSION: No acute intracranial abnormality. ACT 112: Negative or not required by law. The above report was generated using voice recognition software. It may contain grammatical, syntax or spelling errors. Electronically signed by: Riaz Deal M.D. 04/07/2022 11:46 AM Code Status & VTE Plan VTE Prophylaxis Plan VTE Prophylaxis will be ordered: Yes Supervising Physician Co-Signing Physician Notes Pt seen and examined by me, care coordinated greg Barnes PA-C, pls refer to her note above for further detail. Pt is a 76 yo M w/hx of BPH s/p TURB ([address] Foster ), HTN, polycythemia vera presented to ER with c/o nausea and vomiting x 3 days.Patient reports having hiccups started 4 days ago. Reports having lower abdominal discomfort that he felt was normal post-op. Also c/o diffuse abdominal discomfort described as bloating and aching. Past 2-3 days having vomiting. Last night had brown color emesis. Since here in the ER RHODES has resolved. Currently lying in bed, in no acute distress. He is awake alert oriented answering questions appropriately. Clear to auscultation bilaterally. Regular heart sounds. positive bowel sounds. Abdomen mildly tender to palpation diffusely. Patient was extremities. Skin is warm and dry. Patient found to be hyponatremic, sodium 115. Received over 1 L of normal saline in the ED. IV fluids stopped, and BMP repeated. Nephrology contacted for further recommendations. Patient to be monitored closely in ICU for now. CT head ordered. Given recent urologic procedure, Dr. Foster contacted and urology consulted. For now continue IV antibiotics. MD Lety
--- NOTE | 2022-04-07 11:00 | Electrocardiogram Report ---
Test Reason : Blood Pressure : / mmHG Vent. Rate : 088 BPM Atrial Rate : 088 BPM P-R Int : 210 ms QRS Dur : 098 ms QT Int : 386 ms P-R-T Axes : 059 027 087 degrees QTc Int : 467 ms Sinus rhythm with 1st degree A-V block RSR' or QR pattern in V1 suggests right ventricular conduction delay Abnormal ECG No previous ECGs available Confirmed by Librado Garcia ([id number]) on 04/07/2022 11:00:27 AM Referred By: REFERRED SELF Confirmed By:Librado Garcia
[2022-04-07 11:43] LABS: BUN Creatinine Ratio 18.6 (10-20); Calcium 8.5 mg/dl (8.5-10.1); Creatinine Clr Calc Pharmacy 58.7 ml/min; Est GFR (African American) 86.3 ml/min; Est GFR (Non-African American) 74.5 ml/min; Potassium 4.1 mmol/L (3.5-5.1)
--- NOTE | 2022-04-07 11:49 | CT Scan Report ---
CT head/brain wo con CLINICAL HISTORY: 76 years-old Male with RHODES. Acute headache TECHNIQUE: Multiple axial CT images of the head were obtained without contrast. A dose lowering tech nique was utilized adhering to the principles of ALARA. CT DOSE: 614.27 mGy.cm COMPARISON: None. FINDINGS: No acute intracranial hemorrhage, midline shift, intracranial mass, hydrocephalus, territorial ischem ia or abnormal extra-axial collection. Mild involutional changes. Subtle white matter hypodensities s uggest chronic microvascular ischemic disease. The calvarium is intact. Prior bilateral lens repair. The paranasal sinuses, mastoid air cells, and m iddle ear cavities are clear. IMPRESSION: No acute intracranial abnormality. ACT 112: Negative or not required by law. The above report was generated using voice recognition software. It may contain grammatical, syntax o r spelling errors. Electronically signed by: Riaz Deal M.D. 04/07/2022 11:46 AM
[2022-04-07] MEDS ORDERED: VANCOMYCIN CONSULT ACTIVE PRN (13:34)
[2022-04-07] MEDS ORDERED: VANCOMYCIN HCL 1,500 MG in SODIUM CHLORIDE 0.9% 500 ML IV ONE (14:00)
[2022-04-07 15:00] LABS: BUN Creatinine Ratio 18.9 (10-20); Calcium 8.3 mg/dl (8.5-10.1); Creatinine Clr Calc Pharmacy 59.9 ml/min; Est GFR (African American) 88.5 ml/min; Est GFR (Non-African American) 76.4 ml/min; Potassium 4.1 mmol/L (3.5-5.1)
[2022-04-07] MEDS: ICU Protocol for HYPERglycemia SCH ×2 (16:44→21:14)
[2022-04-07] MEDS ORDERED: DEXTROSE 5% 1,000 ML IV SCH (16:45)
--- NOTE | 2022-04-07 16:57 | Critical Care Consultation ---
Date of Consultation April 07, 2022 Assessment & Plan (1) Hyponatremia: Reason Critically Ill: Hyponatremia to 114 PLAN: CV: Abnormal EKG -Reviewed EKG, possible right ventricular conduction delay Fluids/Renal: Hyponatremia -Treatment started by nephrology -Discussed with hospitalist service as nephrology is currently treating hyponatremia we will defer to their recommendations to avoid duplicate orders and therapeutic interchanges. ID: Postoperative state Abnormal urinalysis: To be expected in postoperative state -Blood cultures obtained -Hospitalist team discussed with urology have instituted broad-spectrum antibiotics until culture results GI/Nutrition: Upper abdominal pain -Clinically consistent with gastritis versus small Ruth-Smith tear, there is always possibility of gastric ulcer however I think this to be less likely -Reports that he follows of gastroenterology: Previous gastritis/gastric ulcer -On Protonix daily -If aspect of Ruth-Smith tear symptoms will likely resolve couple of days -CT scan results reviewed, no findings consistent with Boerhaave's, chest x-ray could be considered to exclude mediastinal free air however that is not consistent with the clinical picture the patient is describing Heme: Polycythemia vera -Patient reports that values are near his baseline with regards to white blood cell count and platelets -There is anemia present, this is likely postoperative blood loss: Patient has known hematuria DVT prophylaxis: SCDs Vascular access: Peripheral IVs Code Status: Full code Disposition: Patient's complaints are currently being treated by primary team as well as nephrology. Discussed with hospitalist team that critical care will sign off. Please call with any additional issues or questions or concerns. (2) Polycythemia vera: (3) Hypertension: (4) S/P TURP: (5) Abdominal pain: (6) Nausea & vomiting: (7) Post-operative state: History of Present Illness Reason for Consultation: Asymptomatic hyponatremia Attending Physician: Jose Davidson MD History of Present Illness Patient is a 76-year-old male who underwent outpatient prostate surgery earlier this week, 6 days ago. He has been nauseated and vomiting with decreased p.o. intake. He was found to have a sodium concentration of 114 in the emergency department. He was administered 1 L of normal saline. He was evaluated by the hospitalist service who consulted nephrology. Nephrology has started D5W at 75 mils per hour for 3.5 hours sodium bump of 3 MEQ's. They have ordered every 4 hours BMPs. Urinalysis was reviewed and he has blood cultures which are pending. He was started on cefepime and vancomycin for broad-spectrum coverage until cultures result. He has a mild anemia as well as leukocytosis. He carries a past medical history of polycythemia vera. Started on a heart healthy diet with 1500 mL free water fluid restriction. During my evaluation the patient is complaining of a burning sensation in his upper stomach when he eats or drinks fluid. This is of new onset although he reports he has had limited p.o. the past 2 to 3 days. He has had something like this before when he had an upper endoscopy approximately 5 years ago and was found to have an ulcer. He also reports he had black flecks of blood and an episode of emesis he had yesterday. No yris bright red blood no black tarry stools. He denies chest pain or shortness of breath. The pain is moderate in quality without radiation. It is not reproducible with direct palpation. Patient also reports he has had several days of hiccups which is made his upper abdominal pain worse. The hiccups have since resolved. He is also denying fevers and chills. He reports that with his polycythemia vera his white cell count normally runs in the 20-25,000. Allergies Allergy/AdvReac Type Severity Reaction Status Date / Time No Known Allergies Allergy Verified 11/28/21 07:40 Home Medications Medication Instructions Recorded Confirmed Type betamethasone dipropionate 0.05 % 1 applic topical DAILY PRN skin 05/17/20 04/07/22 Rx topical ointment irritation #15 grams aspirin 81 mg tablet,delayed 81 mg PO QAM 11/05/21 04/07/22 History release (Adult Aspirin Regimen) atorvastatin 10 mg tablet 10 mg PO PM 11/05/21 04/07/22 History cholecalciferol (vitamin D3) 50 50 mcg PO QAM 11/05/21 04/07/22 History mcg (2,000 unit) capsule docusate sodium 100 mg capsule 100 mg PO DAILY PRN Constipation 11/05/21 04/07/22 History (Colace) dutasteride 0.5 mg capsule 0.5 mg PO BID 11/05/21 04/07/22 History polyethylene glycol 3350 17 17 g PO DAILY PRN Constipation 11/05/21 04/07/22 History gram/dose oral powder (Miralax) ruxolitinib 10 mg tablet (Jakafi) 10 mg PO DAILY 11/05/21 04/07/22 History valsartan 320 1 tab PO PM 11/05/21 04/07/22 History mg-hydrochlorothiazide 25 mg tablet allopurinol 100 mg tablet 100 mg PO DAILY 04/07/22 04/07/22 History tamsulosin 0.4 mg capsule 0.4 mg PO DAILY 04/07/22 04/07/22 History Patient History Medical History BPH with obstruction/lower urinary tract symptoms Hx of irritable bowel syndrome Hyperlipidemia Hypertension controlled Peripheral neuropathy toes Polycythemia vera Renal cyst no isses with, just monitoring Retinal tear Spleen enlarged Surgical History History of colonoscopy History of cystoscopy History of detached retina repair left History of esophagogastroduodenoscopy (EGD) History of left cataract surgery S/P TURP Family History (Updated 04/07/22 @ 12:53 by Rupali Barnes PA-C) Other Breast cancer Coronary heart disease Stroke Social History Smoking Status: Never smoker Second Hand Exposure: No; Hx Alcohol Use: Yes Alcohol type: wine Hx Substance Use: No Preferred Language: Lao Communication Ability: Effective Compo Caster Required: No Beliefs That Will Affect Care: None marital status: Current Living Situation: Spouse current occupational status: retired How many Children do You have: 2 Feels Safe at Home: Yes Safety Concerns: Feels Safe At This Time Assistive Devices: None Review of Systems Review of Systems: As per the HPI otherwise 12 point review of systems is otherwise negative Physical Exam Physical Exam: General: Alert. nontoxic. Skin: Warm, dry, Head: Atraumatic Ears, nose, mouth and throat: airway patent Cardiovascular: Normal peripheral perfusion Respiratory: no respiratory distress Gastrointestinal: Non distended, pain is not reproducible with direct palpation of the Epigastric area, negative rise of eggs negative Harris's Musculoskeletal: No deformity Results & Data Results & Data ([facility]) Vital Signs (Past 12 Hours) Vital Signs Temp Pulse Pulse Resp BP BP Pulse Ox 04/07/22 16:00 83 04/07/22 15:00 84 23 98 04/07/22 15:00 143/73 H 04/07/22 14:00 79 18 95 04/07/22 14:00 147/71 H 04/07/22 13:30 81 17 97 04/07/22 13:34 84 04/07/22 13:40 04/07/22 13:35 37 C 84 21 142/79 H 97 04/07/22 11:00 86 18 137/71 96 04/07/22 09:00 93 H 18 138/63 97 04/07/22 07:00 83 18 160/77 H 97 04/07/22 06:25 36.6 C 106 H 18 183/77 H 98 O2 Del Method 04/07/22 16:00 04/07/22 15:00 04/07/22 15:00 04/07/22 14:00 04/07/22 14:00 04/07/22 13:30 04/07/22 13:34 04/07/22 13:40 Room Air 04/07/22 13:35 Room Air 04/07/22 11:00 Room Air 04/07/22 09:00 Room Air 04/07/22 07:00 Room Air 04/07/22 06:25 Room Air Critical Care Results & Data Vital Signs (Past 12 Hours) Vital Signs Temp Pulse Pulse Resp BP BP Pulse Ox 04/07/22 16:00 83 04/07/22 15:00 84 23 98 04/07/22 15:00 143/73 H 04/07/22 14:00 79 18 95 04/07/22 14:00 147/71 H 04/07/22 13:30 81 17 97 04/07/22 13:34 84 04/07/22 13:40 04/07/22 13:35 37 C 84 21 142/79 H 97 04/07/22 11:00 86 18 137/71 96 04/07/22 09:00 93 H 18 138/63 97 04/07/22 07:00 83 18 160/77 H 97 04/07/22 06:25 36.6 C 106 H 18 183/77 H 98 O2 Del Method 04/07/22 16:00 04/07/22 15:00 04/07/22 15:00 04/07/22 14:00 04/07/22 14:00 04/07/22 13:30 04/07/22 13:34 04/07/22 13:40 Room Air 04/07/22 13:35 Room Air 04/07/22 11:00 Room Air 04/07/22 09:00 Room Air 04/07/22 07:00 Room Air 04/07/22 06:25 Room Air Lab & Micro Results (Past 24 Hours) RBC 4.35 M/uL (4.63-6.08) L 04/07/22 WBC 23.54 K/ul (4.8-10.8) H 04/07/22 Hgb 13.9 g/dl (14.0-18.0) L 04/07/22 Hct 36.9 % (40.1-51.0) L 04/07/22 MCV 84.8 fL (80.0-100.0) 04/07/22 MCH 32.0 pg (25.0-34.0) 04/07/22 MCHC 37.7 g/dL (32.0-36.0) H 04/07/22 RDW Standard Deviation 45.5 fL (36.4-46.3) 04/07/22 RDW Coefficient of Variation 14.8 % (11.5-14.5) H 04/07/22 Plt Count 459 K/uL (130-400) H 04/07/22 MPV 11.3 fL (9.4-12.4) 04/07/22 Neutrophils (%) (Auto) 85.4 % 04/07/22 Lymphocytes (%) (Auto) 5.9 % 04/07/22 Monocytes # (Auto) 1.01 K/uL (0.24-0.82) H 04/07/22 Eosinophils # (Auto) 0.06 K/uL (0-0.50) 04/07/22 Immature Granulocyte % (Auto) 3.3 % 04/07/22 Neutrophils # (Auto) 20.14 K/uL (1.4-6.5) H 04/07/22 Lymphocytes # (Auto) 1.38 K/uL (1.2-3.4) 04/07/22 Monocytes # (Auto) 1.01 K/uL (0.24-0.82) H 04/07/22 Eosinophils # (Auto) 0.06 K/uL (0-0.50) 04/07/22 Basophils # (Auto) 0.18 K/uL (0-0.2) 04/07/22 Immature Granulocyte # (Auto) 0.77 K/uL (0.00-0.02) H 04/07 Polychromasia 1+ 04/07/22 Echinocytes 2+ 04/07/22 Tear Drop Cells 1+ 04/07/22 Na 117 mmol/L (136-145) L* 04/07/22 K 4.1 mmol/L (3.5-5.1) 04/07/22 Cl 84 mmol/L (98-107) L 04/07/22 CO2 23 mmol/L (21-32) 04/07/22 Anion Gap 10 (3-11) 04/07/22 BUN 18 mg/dl (6-23) 04/07/22 Creatinine 0.95 mg/dl (0.6-1.4) 04/07/22 Estimated GFR ( Amer) 88.5 ml/min 04/07/22 Estimated GFR (Non-Af Amer) 76.4 ml/min 04/07/22 BUN/Creatinine Ratio 18.9 (10-20) 04/07/22 Glu 97 mg/dl (70-99(Fasting)) 04/07/22 Ca 8.3 mg/dl (8.5-10.1) L 04/07/22 Total Bilirubin 0.9 mg/dl (0.2-1.0) 04/07/22 AST 31 U/L (13-39) 04/07/22 ALT 12 U/L (7-52) 04/07/22 Alkaline Phosphatase 80 U/L (34-104) 04/07/22 TP 6.9 gm/dl (6.0-8.3) 04/07/22 Albumin 4.5 gm/dl (3.4-5.0) 04/07/22 Globulin 2.4 gm/dl (2.5-4.0) L 04/07/22 Albumin/Globulin Ratio 1.9 (0.9-2) 04/07/22 Mg 1.9 mg/dl (1.7-2.4) 04/07/22 06:45 Calcium Level 8.3 mg/dl (8.5-10.1) L 04/07/22 14:27 Diagnostic Findings (Past 24 Hours) Abdomen/Pelvis CT 04/07/22 06:[address] WITH IV CONTRAST CT DOSE: 479.70 mGy.cm HISTORY: Acute generalized abdominal pain with nausea and vomiting abd pain, n/v, post op prostate surg TECHNIQUE: Multiaxial CT images of the abdomen and pelvis were performed following the IV administration of 90 cc of Optiray, A dose lowering technique was utilized adhering to the principles of ALARA. COMPARISON STUDY: None. FINDINGS: Study is degraded by respiratory motion artifact. Trace pleural effusions. Mild intralobular septal thickening of the lung bases. No pneumatosis or pneumoperitoneum. Spleen is enlarged measuring up to 16.3 cm in length. Moderately atrophic pancreas. Punctate left adrenal calcification. Degenerative glands are otherwise unremarkable. Unremarkable gallbladder and liver. Patency of the hepatic and portal veins. Bilateral renal cysts measure up to approximately 9 cm on the right and 4.3 cm on the left. No hydronephrosis. Urinary bladder wall thickening with partial distention. A focus of air is noted within the urinary bladder lumen. Perivesicular stranding. Enlarged heterogeneous prostate measures up to approximately 5 cm. Suggested TURP defect of the prostate with mild adjacent inflammation and trace free pelvic fluid. No drainable fluid collection. Small fat filled left inguinal hernia. Atherosclerosis of the aorta. No lymphadenopathy. No bowel obstruction. Colonic diverticulosis. Moderate colonic fecal retention. The appendix is suboptimally visualized. No CT evidence of acute appendicitis. Unremarkable soft tissues. Degenerative changes of the spine, pelvis and hips. Subcentimeter sclerotic foci of the pelvis. There is severe intervertebral disc space narrowing at the L2-L3 level. IMPRESSION: 1. Suggested TURP defect of the prostate. Mild adjacent inflammatory stranding with trace free pelvic fluid are likely expected postprocedural changes. 2. Partial distention of the urinary bladder with mild wall thickening. Air within the bladder lumen may be secondary to instrumentation versus infection. Correlate with urinalysis. 3. Trace pleural effusions with questioned mild pulmonary edema. 4. Moderate splenomegaly. 5. No bowel obstruction or bowel wall thickening. 6. Moderate colonic fecal retention. ACT 112: Negative or not required by law. The above report was generated using voice recognition software. It may contain grammatical, syntax or spelling errors. Electronically signed by: Riaz Deal M.D. 04/07/2022 8:[address] 04/07/22 10:57 CT head/brain wo con CLINICAL HISTORY: 76 years-old Male with RHODES. Acute headache TECHNIQUE: Multiple axial CT images of the head were obtained without contrast. A dose lowering technique was utilized adhering to the principles of ALARA. CT DOSE: 614.27 mGy.cm COMPARISON: None. FINDINGS: No acute intracranial hemorrhage, midline shift, intracranial mass, hydrocephalus, territorial ischemia or abnormal extra-axial collection. Mild involutional changes. Subtle white matter hypodensities suggest chronic microvascular ischemic disease. The calvarium is intact. Prior bilateral lens repair. The paranasal sinuses, mastoid air cells, and middle ear cavities are clear. IMPRESSION: No acute intracranial abnormality. ACT 112: Negative or not required by law. The above report was generated using voice recognition software. It may contain grammatical, syntax or spelling errors. Electronically signed by: Riaz Deal M.D. 04/07/2022 11:46 AM I & O Totals 24 Hours 04/06/22 04/07/22 04/08/22 06:59 06:59 06:59 Intake Total 1012.500 / 1012.500 Output Total 150 / 150 Balance 862.500 / 862.500 Cumulative 04/07/22 06:18 thru 04/07/22 15:18 Intake Total 1012.500 Output Total 150 Balance 862.500 RT Ventilator Mngmt (Last Documented) Ventilator Ordered Settings Respiratory Rate 23 04/07/22 15:00 Ventilator - PT Measurements Respiratory Rate 23 Coding Level of Care Code INP/OBS CONSULT LVL 5, 80 MIN Diagnoses Hyponatremia E87.1 Polycythemia vera D45 Hypertension I10 S/P TURP Z90.79 Abdominal pain R10.9 Nausea & vomiting R11.2 Post-operative state Z98.890
[2022-04-07] MEDS: PANTOprazole 40 MG in SYRINGE 0 ML IV SCH (17:00)
[2022-04-07 19:18] LABS: Calcium 8.6 mg/dl (8.5-10.1); Creatinine Clr Calc Pharmacy 59.9 ml/min; Est GFR (African American) 88.5 ml/min; Est GFR (Non-African American) 76.4 ml/min; Potassium 3.6 mmol/L (3.5-5.1)
[2022-04-07] MEDS ORDERED: POLYETHYLENE (MIRALAX) 17 GM PACK PO PRN (19:29)
[2022-04-07] MEDS ORDERED: DOCUSATE SODIUM 100 MG CAP PO PRN (19:29)
--- NOTE | 2022-04-07 20:56 | Pharmacy Report ---
Pharmacy PK ABX Note - Date of Service April 07, 2022 - Assessment and Plan Assessment 76 year old M who presented with hyponatremia, N/V, and leukocytosis. He is s/p TURP procedure on 04/01/22. Urology was consulted and recommended initiation of broad spectrum antibiotics. Of note, patient is on ruxolitinib at home for treatment of polycythemia vera. BC pending Plan Cefepime 2g IV q12h Vancomycin * Loading dose: 1500 mg IV x 1 * Maintenance dose: 1250 mg (17.5 mg/kd) IV every 18 hours * Regimen is predicted to achieve target AUC/LAI of 400-600 mg/L.hr * predicted AUC at steady state: 582 * predicated trough at steady state: 18 mcg/mL * No level ordered at this time - vanco currently ordered x 48h only Pharmacy will continue to follow and will adjust dose/frequency as necessary. Thank you.
[2022-04-07] MEDS: CEFEPIME 2,000 MG in SYRINGE 0 ML IV SCH (21:13)
[2022-04-07] MEDS: ATORVASTATIN 10 MG TAB PO SCH (21:14)
--- NOTE | 2022-04-07 21:32 | Urology Consultation ---
Date of Consultation April 07, 2022 Assessment & Plan (1) S/P TURP: The primary service has discussed the case with Dr. Reymundo Foster of [facility] urology who performed patient's procedure. It was noted that some intermittent hematuria was to be expected. He is recommend the patient be placed on broad-spectrum antibiotics until urine culture is resulted. He noted the patient did not require Woods catheter as long as patient is emptying his bladder adequately. No additional recommendations at this time. I have encouraged the patient to maintain his follow-up with Dr. Foster which he states he has in approximately 1 week. History of Present Illness Reason for Consultation: Status post TURP Attending Physician: Jose Davidson MD History of Present Illness This is a 76-year-old male who presented to the emergency department secondary to nausea and vomiting x3 days. The patient is status post TURP procedure by Dr. Reymundo Foster in 04/01/2022. Patient was discharged from this procedure with a catheter in place as well as 3 days of Bactrim. The patient did have his Woods catheter removed on 04/05/2022 after successful voiding trial. The patient notes that he has been having some intermittent hematuria. He does feel as though his urine stream is stronger than what it was prior to his procedure. He also feels as though he is emptying his bladder much more completely. He denies any urinary hesitancy. He does admit to some dysuria at the end of his urine stream. In addition the patient's nausea and vomiting he notes that he has not been eating eating as much as usual and since his nausea and vomiting began he has been trying to drink more water. Since arrival to the hospital the patient has had labs and imaging which independent reviewed. Patient had findings on the CT scan abdomen pelvis consistent with postoperative TURP with some adjacent inflammatory stranding and trace free fluid in the pelvis near the prostate. Partial distention of the urinary bladder was noted. A CT scan of the head showed no acute intracranial abnormalities. Labs include a CBC her white blood cell count was 23.5. Hemoglobin and hematocrit were 13.9 and 36.9. Platelet count was noted to be 4 and 59,000. Chemistry profile showed sodium was 116 with a potassium that was normal. His BUN and creatinine were both normal. Lactic acid was nonelevated. Magnesium was normal. Urinalysis showed 3+ blood with trace leukocyte Estrace and was negative for nitrites. Only 1-5 white blood cells per high-power field were noted with no bacteria. A COVID test was noted be negative. At the time of my interview the patient was resting comfortably in bed and he was in no distress. Allergies Allergy/AdvReac Type Severity Reaction Status Date / Time No Known Allergies Allergy Verified 11/28/21 07:40 Home Medications Medication Instructions Recorded Confirmed Type betamethasone dipropionate 0.05 % 1 applic topical DAILY PRN skin 05/17/20 04/07/22 Rx topical ointment irritation #15 grams aspirin 81 mg tablet,delayed 81 mg PO QAM 11/05/21 04/07/22 History release (Adult Aspirin Regimen) atorvastatin 10 mg tablet 10 mg PO PM 11/05/21 04/07/22 History cholecalciferol (vitamin D3) 50 50 mcg PO QAM 11/05/21 04/07/22 History mcg (2,000 unit) capsule docusate sodium 100 mg capsule 100 mg PO DAILY PRN Constipation 11/05/21 04/07/22 History (Colace) dutasteride 0.5 mg capsule 0.5 mg PO BID 11/05/21 04/07/22 History polyethylene glycol 3350 17 17 g PO DAILY PRN Constipation 11/05/21 04/07/22 History gram/dose oral powder (Miralax) ruxolitinib 10 mg tablet (Jakafi) 10 mg PO DAILY 11/05/21 04/07/22 History valsartan 320 1 tab PO PM 11/05/21 04/07/22 History mg-hydrochlorothiazide 25 mg tablet allopurinol 100 mg tablet 100 mg PO DAILY 04/07/22 04/07/22 History tamsulosin 0.4 mg capsule 0.4 mg PO DAILY 04/07/22 04/07/22 History Patient History Medical History BPH with obstruction/lower urinary tract symptoms Hx of irritable bowel syndrome Hyperlipidemia Hypertension controlled Peripheral neuropathy toes Polycythemia vera Renal cyst no isses with, just monitoring Retinal tear Spleen enlarged Surgical History History of colonoscopy History of cystoscopy History of detached retina repair left History of esophagogastroduodenoscopy (EGD) History of left cataract surgery S/P TURP Family History Other Breast cancer Coronary heart disease Stroke Social History Smoking Status: Never smoker Second Hand Exposure: No; Hx Alcohol Use: Yes Alcohol type: wine Hx Substance Use: No Preferred Language: Maldivian Communication Ability: Effective Planning Supervisor Required: No Beliefs That Will Affect Care: None marital status: Current Living Situation: Spouse current occupational status: retired How many Children do You have: 2 Feels Safe at Home: Yes Safety Concerns: Feels Safe At This Time Assistive Devices: None Review of Systems Constitutional: no fever and no chills Eyes: no eye pain Ear, Nose, Mouth, Throat: no ear pain Respiratory: no cough and no dyspnea Cardiovascular: no chest pain Gastrointestinal: + nausea and + vomiting; no abdominal pain Genitourinary: + as per Subjective / HPI Musculoskeletal: no back pain Integumentary: no rash Neurologic: no localized weakness Physical Exam Constitutional: WD/WN, vitals as above Eyes: no conjunctival abnormality ENMT: Ears: + hearing impairment; no external ear abnormality Mouth: no oropharynx abnormality Neck: trachea midline Respiratory: normal respiratory effort; no respiratory distress and no labored breathing Cardiovascular: Rate/Rhythm: regular rate and regular rhythm Gastrointestinal (Abdomen): Soft, nondistended, nonrigid, nontender to palpation Musculoskeletal: No calf tenderness Skin: no rashes Neurologic: moves all extremities Psychiatric: A+Ox3, euthymic affect Results & Data ([facility]) Vital Signs (Past 12 Hours) Vital Signs Temp Pulse Pulse Resp BP BP Pulse Ox 04/07/22 20:32 76 20 96 04/07/22 20:32 149/87 H 04/07/22 20:00 77 15 95 04/07/22 19:00 83 26 H 96 04/07/22 19:00 149/98 H 04/07/22 19:00 36.7 C 04/07/22 18:00 36.6 C 04/07/22 18:00 82 17 96 04/07/22 18:00 145/81 H 04/07/22 17:27 90 24 97 04/07/22 17:27 147/82 H 04/07/22 17:00 93 H 21 95 04/07/22 16:00 87 19 94 04/07/22 16:00 154/78 H 04/07/22 16:00 83 04/07/22 15:00 84 23 98 04/07/22 15:00 143/73 H 04/07/22 14:00 79 18 95 04/07/22 14:00 147/71 H 04/07/22 13:30 81 17 97 04/07/22 13:34 84 04/07/22 13:40 04/07/22 13:35 37 C 84 21 142/79 H 97 04/07/22 11:00 86 18 137/71 96 O2 Del Method 04/07/22 20:32 04/07/22 20:32 04/07/22 20:00 Room Air 04/07/22 19:00 04/07/22 19:00 04/07/22 19:00 04/07/22 18:00 04/07/22 18:00 04/07/22 18:00 04/07/22 17:27 04/07/22 17:27 04/07/22 17:00 04/07/22 16:00 04/07/22 16:00 04/07/22 16:00 04/07/22 15:00 04/07/22 15:00 04/07/22 14:00 04/07/22 14:00 04/07/22 13:30 04/07/22 13:34 04/07/22 13:40 Room Air 04/07/22 13:35 Room Air 04/07/22 11:00 Room Air PG Care Time/CCT Total # of Minutes Spent Total Time Spent with Patient: Total time spent is greater than 50% in coordination of care (as documented) at patient's floor/unit and/or counseling patient: Coding Level of Care Code 94924 INT INP/OBS CARE 3/75MIN Diagnoses S/P TURP Z90.79
[2022-04-08 00:05] LABS: BUN Creatinine Ratio 19.8 (10-20); Calcium 8.4 mg/dl (8.5-10.1); Creatinine Clr Calc Pharmacy 62.5 ml/min; Est GFR (African American) 93.2 ml/min; Est GFR (Non-African American) 80.4 ml/min; Potassium 3.9 mmol/L (3.5-5.1)
[2022-04-08] MEDS ORDERED: ONDANSETRON INJ 2 MG/ML 2 ML VIAL IV STA (00:42)
[2022-04-08] MEDS ORDERED: SODIUM CHLORIDE 0.9% 500 ML IV SCH (01:00)
[2022-04-08] MEDS: VANCOMYCIN HCL 1,250 MG in SODIUM CHLORIDE 0.9% 250 ML IV SCH ×2 (02:09→19:54)
[2022-04-08 03:31] LABS: BUN Creatinine Ratio 23.4 (10-20); Creatinine Clr Calc Pharmacy 73.9 ml/min; Est GFR (African American) 100.7 ml/min; Est GFR (Non-African American) 86.9 ml/min; Potassium 3.6 mmol/L (3.5-5.1)
[2022-04-08] MEDS: SODIUM CHLORIDE 0.9% 1000ML 1,000 ML IV SCH ×3 (04:02→23:20)
[2022-04-08 07:25] LABS: Basophils # (auto) 0.14 K/uL (0-0.2); Basophils % (auto) 0.6 %; Eosinophils # (auto) 0.08 K/uL (0-0.50); Eosinophils % (auto) 0.4 %; Hematocrit (blood only) 30.7 % (40.1-51.0); Hemoglobin 11.6 g/dl (14.0-18.0); Immature Granulocytes # (auto) 0.82 K/uL (0.00-0.02); Immature Granulocytes % (auto) 3.8 %; Lymphocytes # (auto) 0.72 K/uL (1.2-3.4); Lymphocytes % (auto) 3.3 %; Mean Corpuscular Hemoglobin 32.2 pg (25.0-34.0); Mean Corpuscular Hgb Conc 37.8 g/dL (32.0-36.0); Mean Corpuscular Volume 85.3 fL (80.0-100.0); Mean Platelet Volume 11.1 fL (9.4-12.4); Monocytes # (auto) 1.21 K/uL (0.24-0.82); Monocytes % (auto) 5.5 %; Neutrophils # (auto) 18.85 K/uL (1.4-6.5); Neutrophils % (auto) 86.4 %; Platelet Count 345 K/uL (130-400); RDW Standard Deviation 46.6 fL (36.4-46.3); White Blood Count 21.82 K/ul (4.8-10.8)
[2022-04-08 07:45] LABS: BUN Creatinine Ratio 18.8 (10-20); Calcium 8.1 mg/dl (8.5-10.1); Est GFR (African American) 96.7 ml/min; Est GFR (Non-African American) 83.5 ml/min; Magnesium 1.8 mg/dl (1.7-2.4); Phosphorus 2.3 mg/dl (2.5-4.9); Potassium 3.7 mmol/L (3.5-5.1)
--- NOTE | 2022-04-08 07:59 | Hospitalist Progress Note ---
Date of Service April 08, 2022 Assessment & Plan (1) Hyponatremia: Plan: Patient with nausea, vomiting, decreased food intake. Reported increased fluid intake earlier in the week. S/p TURP 6 days ago. Headache times several days has since improved in ER CT head: No acute intracranial abnormality Na: 115 on admission In ER given 1L NSS Urine sodium, urine osmolality, urine osmolality, TSH Outpatient chart review had sodium of 135 on 03/06/2022 and 127 on 02/01/2022 BMP every 4 hours initially Now Na 119 (04/08 AM) Continue normal saline 75 mils per hour, BMP now every 8 hours. Hold HCTZ Nephrology consulted and following (2) Nausea & vomiting: (3) Abdominal pain: Plan: 3 days nausea, vomiting. Diffuse abdominal discomfort s/p TURP 6 days ago WBC: 23 (has been 15-20 in the past 24 months per outpatient chart review). Lactate WNL. UA: 3+ blood, trace leuk esterase,> 30 RBC, 10-[address] abdomen pelvis: 1. Suggested TURP defect of the prostate. Mild adjacent inflammatory stranding with trace free pelvic fluid are likely expected postprocedural changes. 2. Partial distention of the urinary bladder with mild wall thickening. Air within the bladder lumen may be secondary to instrumentation versus infection. Correlate with urinalysis. 3. Trace pleural effusions with questioned mild pulmonary edema. 4. Moderate splenomegaly. 5. No bowel obstruction or bowel wall thickening. 6. Moderate colonic fecal retention. Treat for possible UTI Urine culture pending Blood cultures pending Cover with cefepime, vancomycin empirically CBC in a.m. (4) BPH with obstruction/lower urinary tract symptoms: (5) S/P TURP: Plan: S/P GLTURP on 04/01/[address] Foster urology [facility]. Was D/C with catheter that was removed On 04/05/2022 after voiding trial. Has been having intermittent hematuria, dysuria. Feels urine stream strength is same as it was pre-surgery. Had prophylaxis with 3 days of Bactrim UA: negat. nitrite, negt. bacteria Blood culture negat. 24 hrs In ER given cefepime Continue cefepime, vancomycin On gelastic, tamsulosin at home Reached out to Dr Foster, urology, [facility] via TT. Discussed that hematuria is to be expected, imaging studies are expected in his postoperative status. Recommended covering with broad-spectrum antibiotics until cultures resulted, 7 to 10-day course. If patient emptying bladder can avoid catheter however if has post residual void with drain. Urology consult (6) Hypertension: Plan: Stable Continue valsartan with holding parameters Hold / STOP HCTZ (7) Polycythemia vera: Plan: H/H: 13.9/36. PLT: 459 (was 480 on 03/25/2022) On ruxolitinib Follows with Hematology - Dr Pastor. Also follows [facility], Dr Clark. Receives phlebotomy if hematocrit greater than 45 DVT Prophylaxis SCDs Full Code as per discussion with pt Follows with Dr Wheeler for routine care Admission and Anticipated Discharge Date Admission Date: April 07, 2022 Subjective Pt seen in follow up of n/v, recent TURP procedure, hyponatremia Patient is laying in bed, in no acute distress Says he is feeling better, however he did have a headache early in the morning Abdominal discomfort has improved, and patient reports no difficulty with urination No fevers chills chest pain shortness of breath Sodium 119, discussed with nephrology, will continue normal saline 75 cc/h and repeat BMP every 8 hours Review of Systems Review of Systems: All systems reviewed & are unremarkable except as noted in Subjective Physical Exam Physical Exam: General: no acute distress, WD/WN Head: normocephalic, atraumatic Eyes: PERRL, EOM's intact, conjunctiva non-injected, anicteric ENT: +Hard of hearing, normal inspection external ears, nose, mucous membranes mildly dry Neck: supple Lungs: clear, no respiratory distress, no wheezing/rhonchi/rales CV: RRR, no murmur, no pretibial edema Abd: normal BS, soft, non-tender Ext: no calf tenderness, moves extremities Neuro: A&O x 3, no focal deficits noted, normal affect Skin: warm, dry Results & Data Results & Data ([facility]) Vital Signs (Past 12 Hours) Vital Signs Temp Pulse Pulse Resp BP BP Pulse Ox 04/08/22 03:00 37.2 C 74 20 136/66 98 04/08/22 00:00 74 04/07/22 23:00 78 16 96 04/07/22 23:00 151/70 H 04/07/22 22:00 71 18 94 04/07/22 22:00 133/66 04/07/22 21:00 79 15 95 04/07/22 21:00 143/73 H 04/07/22 23:25 36.6 C 04/07/22 20:32 76 20 96 04/07/22 20:32 149/87 H 04/07/22 20:00 77 15 95 O2 Del Method 04/08/22 03:00 Room Air 04/08/22 00:00 04/07/22 23:00 04/07/22 23:00 04/07/22 22:00 04/07/22 22:00 04/07/22 21:00 04/07/22 21:00 04/07/22 23:25 04/07/22 20:32 04/07/22 20:32 04/07/22 20:00 Room Air Laboratory Results 04/08/22 04/08/22 04/08/22 Range/Units 07:04 07:04 02:43 WBC 21.82 H (4.8-10.8) K/ul RBC 3.60 L (4.63-6.08) M/uL Hgb 11.6 L (14.0-18.0) g/dl Hct 30.7 L (40.1-51.0) % MCV 85.3 (80.0-100.0) fL MCH 32.2 (25.0-34.0) pg MCHC 37.8 H (32.0-36.0) g/dL RDW Std Deviation 46.6 H (36.4-46.3) fL RDW Coeff of Micki 15.0 H (11.5-14.5) % Plt Count 345 (130-400) K/uL MPV 11.1 (9.4-12.4) fL Immature Gran % (Auto) 3.8 % Neut % (Auto) 86.4 % Lymph % (Auto) 3.3 % [place] % (Auto) 5.5 % Eos % (Auto) 0.4 % Baso % (Auto) 0.6 % Neut # (Auto) 18.85 H (1.4-6.5) K/uL Lymph # (Auto) 0.72 L (1.2-3.4) K/uL [place] # (Auto) 1.21 H (0.24-0.82) K/uL Eos # (Auto) 0.08 (0-0.50) K/uL Baso # (Auto) 0.14 (0-0.2) K/uL Immature Gran # (Auto) 0.82 H (0.00-0.02) K/uL Sodium 119 L* 117 L* (136-145) mmol/L Potassium 3.7 3.6 (3.5-5.1) mmol/L Chloride 89 L 88 L (98-107) mmol/L Carbon Dioxide 24 21 (21-32) mmol/L Anion Gap 6 8 (3-11) BUN 16 18 (6-23) mg/dl Creatinine 0.85 0.77 (0.6-1.4) mg/dl Est Cr Clr Drug Dosing 67.0 73.9 ml/min Est GFR ( Amer) 96.7 100.7 ml/min Est GFR (Non-Af Amer) 83.5 86.9 ml/min BUN/Creatinine Ratio 18.8 23.4 H (10-20) Glucose 85 88 (70-99(Fasting)) mg/dl POC Glucose (70-99) mg/dl Osmolality (280-300) mOsm/kg Lactate (0.4-2.0) mmol/L Calcium 8.1 L 8.0 L (8.5-10.1) mg/dl Phosphorus 2.3 L (2.5-4.9) mg/dl Magnesium 1.8 (1.7-2.4) mg/dl Procalcitonin (0-0.5) ng/ml TSH (0.300-4.500) uIu/ml Urine Osmolality (500-800) mOsm/kg Ur Random Sodium mmol/L Nasal Screen MRSA (PCR) (Negative) SARS-CoV-2, RNA, NAAT (NEGATIVE) 04/07/22 04/07/22 04/07/22 Range/Units 22:45 18:24 16:36 WBC (4.8-10.8) K/ul RBC (4.63-6.08) M/uL Hgb (14.0-18.0) g/dl Hct (40.1-51.0) % MCV (80.0-100.0) fL MCH (25.0-34.0) pg MCHC (32.0-36.0) g/dL RDW Std Deviation (36.4-46.3) fL RDW Coeff of Micki (11.5-14.5) % Plt Count (130-400) K/uL MPV (9.4-12.4) fL Immature Gran % (Auto) % Neut % (Auto) % Lymph % (Auto) % [place] % (Auto) % Eos % (Auto) % Baso % (Auto) % Neut # (Auto) (1.4-6.5) K/uL Lymph # (Auto) (1.2-3.4) K/uL [place] # (Auto) (0.24-0.82) K/uL Eos # (Auto) (0-0.50) K/uL Baso # (Auto) (0-0.2) K/uL Immature Gran # (Auto) (0.00-0.02) K/uL Sodium 115 L* 116 L* (136-145) mmol/L Potassium 3.9 3.6 (3.5-5.1) mmol/L Chloride 84 L 84 L (98-107) mmol/L Carbon Dioxide 24 24 (21-32) mmol/L Anion Gap 7 8 (3-11) BUN 18 19 (6-23) mg/dl Creatinine 0.91 0.95 (0.6-1.4) mg/dl Est Cr Clr Drug Dosing 62.5 59.9 ml/min Est GFR ( Amer) 93.2 88.5 ml/min Est GFR (Non-Af Amer) 80.4 76.4 ml/min BUN/Creatinine Ratio 19.8 20.0 (10-20) Glucose 94 105 H (70-99(Fasting)) mg/dl POC Glucose 79 (70-99) mg/dl Osmolality (280-300) mOsm/kg Lactate (0.4-2.0) mmol/L Calcium 8.4 L 8.6 (8.5-10.1) mg/dl Phosphorus (2.5-4.9) mg/dl Magnesium (1.7-2.4) mg/dl Procalcitonin (0-0.5) ng/ml TSH (0.300-4.500) uIu/ml Urine Osmolality (500-800) mOsm/kg Ur Random Sodium mmol/L Nasal Screen MRSA (PCR) (Negative) SARS-CoV-2, RNA, NAAT (NEGATIVE) 04/07/22 04/07/22 04/07/22 Range/Units 14:30 14:27 11:47 WBC (4.8-10.8) K/ul RBC (4.63-6.08) M/uL Hgb (14.0-18.0) g/dl Hct (40.1-51.0) % MCV (80.0-100.0) fL MCH (25.0-34.0) pg MCHC (32.0-36.0) g/dL RDW Std Deviation (36.4-46.3) fL RDW Coeff of Micki (11.5-14.5) % Plt Count (130-400) K/uL MPV (9.4-12.4) fL Immature Gran % (Auto) % Neut % (Auto) % Lymph % (Auto) % [place] % (Auto) % Eos % (Auto) % Baso % (Auto) % Neut # (Auto) (1.4-6.5) K/uL Lymph # (Auto) (1.2-3.4) K/uL [place] # (Auto) (0.24-0.82) K/uL Eos # (Auto) (0-0.50) K/uL Baso # (Auto) (0-0.2) K/uL Immature Gran # (Auto) (0.00-0.02) K/uL Sodium 117 L* (136-145) mmol/L Potassium 4.1 (3.5-5.1) mmol/L Chloride 84 L (98-107) mmol/L Carbon Dioxide 23 (21-32) mmol/L Anion Gap 10 (3-11) BUN 18 (6-23) mg/dl Creatinine 0.95 (0.6-1.4) mg/dl Est Cr Clr Drug Dosing 59.9 ml/min Est GFR ( Amer) 88.5 ml/min Est GFR (Non-Af Amer) 76.4 ml/min BUN/Creatinine Ratio 18.9 (10-20) Glucose 97 (70-99(Fasting)) mg/dl POC Glucose (70-99) mg/dl Osmolality (280-300) mOsm/kg Lactate (0.4-2.0) mmol/L Calcium 8.3 L (8.5-10.1) mg/dl Phosphorus (2.5-4.9) mg/dl Magnesium (1.7-2.4) mg/dl Procalcitonin (0-0.5) ng/ml TSH (0.300-4.500) uIu/ml Urine Osmolality (500-800) mOsm/kg Ur Random Sodium 58 mmol/L Nasal Screen MRSA (PCR) Negative (Negative) SARS-CoV-2, RNA, NAAT (NEGATIVE) 04/07/22 04/07/22 04/07/22 Range/Units 11:47 10:52 10:40 WBC (4.8-10.8) K/ul RBC (4.63-6.08) M/uL Hgb (14.0-18.0) g/dl Hct (40.1-51.0) % MCV (80.0-100.0) fL MCH (25.0-34.0) pg MCHC (32.0-36.0) g/dL RDW Std Deviation (36.4-46.3) fL RDW Coeff of Micki (11.5-14.5) % Plt Count (130-400) K/uL MPV (9.4-12.4) fL Immature Gran % (Auto) % Neut % (Auto) % Lymph % (Auto) % [place] % (Auto) % Eos % (Auto) % Baso % (Auto) % Neut # (Auto) (1.4-6.5) K/uL Lymph # (Auto) (1.2-3.4) K/uL [place] # (Auto) (0.24-0.82) K/uL Eos # (Auto) (0-0.50) K/uL Baso # (Auto) (0-0.2) K/uL Immature Gran # (Auto) (0.00-0.02) K/uL Sodium 114 L* (136-145) mmol/L Potassium 4.1 (3.5-5.1) mmol/L Chloride 83 L (98-107) mmol/L Carbon Dioxide 24 (21-32) mmol/L Anion Gap 7 (3-11) BUN 18 (6-23) mg/dl Creatinine 0.97 (0.6-1.4) mg/dl Est Cr Clr Drug Dosing 58.7 ml/min Est GFR ( Amer) 86.3 ml/min Est GFR (Non-Af Amer) 74.5 ml/min BUN/Creatinine Ratio 18.6 (10-20) Glucose 102 H (70-99(Fasting)) mg/dl POC Glucose (70-99) mg/dl Osmolality (280-300) mOsm/kg Lactate (0.4-2.0) mmol/L Calcium 8.5 (8.5-10.1) mg/dl Phosphorus (2.5-4.9) mg/dl Magnesium (1.7-2.4) mg/dl Procalcitonin (0-0.5) ng/ml TSH (0.300-4.500) uIu/ml Urine Osmolality 450 L (500-800) mOsm/kg Ur Random Sodium mmol/L Nasal Screen MRSA (PCR) (Negative) SARS-CoV-2, RNA, NAAT NEGATIVE (NEGATIVE) 04/07/22 04/07/22 04/07/22 Range/Units 09:41 09:41 09:41 WBC (4.8-10.8) K/ul RBC (4.63-6.08) M/uL Hgb (14.0-18.0) g/dl Hct (40.1-51.0) % MCV (80.0-100.0) fL MCH (25.0-34.0) pg MCHC (32.0-36.0) g/dL RDW Std Deviation (36.4-46.3) fL RDW Coeff of Micki (11.5-14.5) % Plt Count (130-400) K/uL MPV (9.4-12.4) fL Immature Gran % (Auto) % Neut % (Auto) % Lymph % (Auto) % [place] % (Auto) % Eos % (Auto) % Baso % (Auto) % Neut # (Auto) (1.4-6.5) K/uL Lymph # (Auto) (1.2-3.4) K/uL [place] # (Auto) (0.24-0.82) K/uL Eos # (Auto) (0-0.50) K/uL Baso # (Auto) (0-0.2) K/uL Immature Gran # (Auto) (0.00-0.02) K/uL Sodium (136-145) mmol/L Potassium (3.5-5.1) mmol/L Chloride (98-107) mmol/L Carbon Dioxide (21-32) mmol/L Anion Gap (3-11) BUN (6-23) mg/dl Creatinine (0.6-1.4) mg/dl Est Cr Clr Drug Dosing ml/min Est GFR ( Amer) ml/min Est GFR (Non-Af Amer) ml/min BUN/Creatinine Ratio (10-20) Glucose (70-99(Fasting)) mg/dl POC Glucose (70-99) mg/dl Osmolality 245 L (280-300) mOsm/kg Lactate 1.0 (0.4-2.0) mmol/L Calcium (8.5-10.1) mg/dl Phosphorus (2.5-4.9) mg/dl Magnesium (1.7-2.4) mg/dl Procalcitonin (0-0.5) ng/ml TSH 1.207 (0.300-4.500) uIu/ml Urine Osmolality (500-800) mOsm/kg Ur Random Sodium mmol/L Nasal Screen MRSA (PCR) (Negative) SARS-CoV-2, RNA, NAAT (NEGATIVE) 04/07/22 Range/Units 09:41 WBC (4.8-10.8) K/ul RBC (4.63-6.08) M/uL Hgb (14.0-18.0) g/dl Hct (40.1-51.0) % MCV (80.0-100.0) fL MCH (25.0-34.0) pg MCHC (32.0-36.0) g/dL RDW Std Deviation (36.4-46.3) fL RDW Coeff of Micki (11.5-14.5) % Plt Count (130-400) K/uL MPV (9.4-12.4) fL Immature Gran % (Auto) % Neut % (Auto) % Lymph % (Auto) % [place] % (Auto) % Eos % (Auto) % Baso % (Auto) % Neut # (Auto) (1.4-6.5) K/uL Lymph # (Auto) (1.2-3.4) K/uL [place] # (Auto) (0.24-0.82) K/uL Eos # (Auto) (0-0.50) K/uL Baso # (Auto) (0-0.2) K/uL Immature Gran # (Auto) (0.00-0.02) K/uL Sodium (136-145) mmol/L Potassium (3.5-5.1) mmol/L Chloride (98-107) mmol/L Carbon Dioxide (21-32) mmol/L Anion Gap (3-11) BUN (6-23) mg/dl Creatinine (0.6-1.4) mg/dl Est Cr Clr Drug Dosing ml/min Est GFR ( Amer) ml/min Est GFR (Non-Af Amer) ml/min BUN/Creatinine Ratio (10-20) Glucose (70-99(Fasting)) mg/dl POC Glucose (70-99) mg/dl Osmolality (280-300) mOsm/kg Lactate (0.4-2.0) mmol/L Calcium (8.5-10.1) mg/dl Phosphorus (2.5-4.9) mg/dl Magnesium (1.7-2.4) mg/dl Procalcitonin 0.06 (0-0.5) ng/ml TSH (0.300-4.500) uIu/ml Urine Osmolality (500-800) mOsm/kg Ur Random Sodium mmol/L Nasal Screen MRSA (PCR) (Negative) SARS-CoV-2, RNA, NAAT (NEGATIVE) Medications Administered Current Inpatient Medications Allopurinol (Allopurinol 100 Mg Tab) 100 mg PO DAILY [facility] Stop: 05/08/22 08:59 Aspirin (Aspirin 81 Mg Ectab) 81 mg PO QAM [facility] Stop: 05/08/22 08:59 Atorvastatin Calcium (Atorvastatin 10 Mg Tab) 10 mg PO PM [facility]ONIA Stop: 05/07/22 20:59 Last Admin: 04/07/22 21:14 Dose: 10 mg Docusate Sodium (Docusate Sodium 100 Mg Cap) 100 mg PO DAILY PRN PRN Reason: Constipation Stop: 05/07/22 19:28 Cefepime HCl 2,000 mg/ Syringe 20 mls @ 5 mls/min IV Q12H SONIA; Protocol Stop: 04/17/22 09:59 Last Admin: 04/07/22 21:13 Dose: 5 mls/min Vancomycin HCl 1,250 mg/ (Sodium Chloride) 275 mls @ 200 mls/hr IV Q18H SONIA; Protocol Stop: 04/09/22 13:59 Last Infusion: 04/08/22 03:46 Dose: Infused Pantoprazole Sodium 40 mg/ (Syringe) 10 mls @ 5 mls/min IV DAILY@1100 [facility] Stop: 05/07/22 16:29 Last Admin: 04/07/22 17:00 Dose: 5 mls/min Sodium Chloride (Nss 1000ml) 1,000 mls @ 75 mls/hr IV .[id number] [facility] Stop: 05/08/22 03:44 Last Admin: 04/08/22 04:02 Dose: 75 mls/hr Miscellaneous (Order Awaiting Action: Dutasteride 0.5mg Capsule) 1 each N/A QS [facility] Stop: 05/08/22 00:00 Last Admin: 04/07/22 23:17 Dose: Not Given Miscellaneous Information (Vancomycin Consult Active) 1 each N/A UD PRN PRN Reason: Consult Stop: 05/07/22 13:33 Polyethylene Glycol (Polyethylene (Miralax) 17 Gm Pack) 17 gm PO DAILY PRN PRN Reason: Constipation Stop: 05/07/22 19:28 Ruxolitinib (Ruxolitinib Phosphate) 1 each PO Q24H [facility] Stop: 05/08/22 08:59 Tamsulosin HCl (Tamsulosin Hcl 0.4 Mg Cap) 0.4 mg PO DAILY [facility] Stop: 05/08/22 08:59 Valsartan (Valsartan 80 Mg Tab) 320 mg PO QAM [facility] Stop: 05/08/22 08:59 Vitamin D (Cholecalciferol 1,000 Units 25 Mcg Tab) 1,000 units PO QAM [facility] Stop: 05/08/22 08:59
[2022-04-08] MEDS: TAMSULOSIN HCL 0.4 MG CAP PO SCH (09:16)
[2022-04-08] MEDS: VALSARTAN 80 MG TAB PO SCH (09:16)
[2022-04-08] MEDS: RUXOLITINIB PHOSPHATE PO SCH (09:16)
[2022-04-08] MEDS: ASPIRIN 81 MG ECTAB PO SCH (09:16)
[2022-04-08] MEDS: allopurinoL 100 MG TAB PO SCH (09:17)
[2022-04-08] MEDS: CEFEPIME 2,000 MG in SYRINGE 0 ML IV SCH ×2 (09:18→20:00)
--- NOTE | 2022-04-08 09:49 | Urology Progress Note ---
Date of Service April 08, 2022 Assessment & Plan (1) S/P TURP: (2) Hematuria: Plan 76yo/M admitted with hyponatremia. Patient is s/p TURP on 04/01/[address] Foster of [facility] urology. Discharged with a catheter which was removed on 04/05/2022 after successful voiding trial. He has noted intermittent hematuria, dysuria. Afebrile and hemodynamically stable. Labs reviewed-WBC 21.82, hemoglobin 11.6, creatinine 0.85. Continue to monitor. Voiding spontaneously, urine is clear yellow this morning. Continue to monitor. Bladder scan prn. He does not require a Woods catheter as long as he is emptying his bladder adequately. Cultures pending-continue broad-spectrum antibiotic coverage and tailor as culture data becomes available. Continue supportive care. He has a follow-up in [address] Foster and plans to keep as scheduled. Urology will sign-off. Please contact us with any further questions, concerns, or changes in patient status. Admission and Anticipated Discharge Date Admission Date: April 07, 2022 Subjective Patient examined at bedside this AM. Awake, sitting in bedside chair on arrival. No acute distress. Denies any significant pain. Reports he is voiding without issue. Urine is clear yellow. Notes some minor discomfort following urination. Overall feeling much better. Reports he has a follow-up next week with Dr. Foster. No fevers or chills. Denies nausea or vomiting. Review of Systems Constitutional: as per Subjective / HPI Gastrointestinal: as per Subjective / HPI Genitourinary: + as per Subjective / HPI Physical Exam Constitutional: no acute distress Respiratory: no respiratory distress and no labored breathing Neurologic: moves all extremities and awake Psychiatric: Orientation: alert, oriented x 3 and cooperative Genitourinary: Urine is clear yellow Results & Data ([facility]) Vital Signs (Past 12 Hours) Vital Signs Temp Pulse Pulse Resp BP BP Pulse Ox 04/08/22 08:03 36.9 C 81 19 159/70 H 96 04/08/22 03:00 37.2 C 74 20 136/66 98 04/08/22 00:00 74 04/07/22 23:00 78 16 96 04/07/22 23:00 151/70 H 04/07/22 22:00 71 18 94 04/07/22 22:00 133/66 04/07/22 23:25 36.6 C O2 Del Method 04/08/22 08:03 Room Air 04/08/22 03:00 Room Air 04/08/22 00:00 04/07/22 23:00 04/07/22 23:00 04/07/22 22:00 04/07/22 22:00 04/07/22 23:25 PG Care Time/CCT Total # of Minutes Spent Total Time Spent with Patient: Total time spent is greater than 50% in coordination of care (as documented) at patient's floor/unit and/or counseling patient: Coding Level of Care Code 11599 SUB INP/OBS CARE 2/35MIN Diagnoses S/P TURP Z90.79 Hematuria R31.9
[2022-04-08] MEDS: CHOLECALCIFEROL 1,000 UNITS 25 MCG TAB PO SCH (09:59)
--- NOTE | 2022-04-08 10:47 | Consultation Report ---
NEPHROLOGY CONSULTATION NOTE REASON FOR CONSULTATION: Hyponatremia. HISTORY OF PRESENT ILLNESS: The patient is a 76-year-old male who had TURP procedure done 1 week ago. The patient has known history of chronic hyponatremia. In fact, I looked back in his outpatient labs and he had serum sodium of 123, 125, and 132, and 135 on his last four blood works. However, he was still on hydrochlorothiazide for a long time. The last few days, he was having vomiting and nausea and was not eating any solid food, but was still drinking lots of liquid. On presentation to the Emergency yesterday, his sodium was 114, this morning is 119. Since being admitted, he has received normal saline at 75 mL per hour. Hydrochlorothiazide has been held and with that serum sodium has gone up to 119 this morning. So the rate of correction has been reasonable. He is starting to feel better and has not had any vomiting for the last 8 hours. His vitals are otherwise stable. He is currently in the ICU, but as an overflow patient from telemetry. Denies any shortness of breath, lower extremity edema. CT abdomen and pelvis was done yesterday and showed some trace pleural effusion with questionable mild pulmonary edema. Urine test done showed urine osmolality of 415 and urine sodium of 58, 4+ ketone, some blood, and some protein. PAST MEDICAL AND SURGICAL HISTORY: Includes hypertension, BPH, status post TURP, history of irritable bowel syndrome, hypertension, peripheral neuropathy, polycythemia vera and is on chemotherapy through Dr. Pastor, history of renal cyst, history of enlarged spleen, with retinal tear. Colonoscopy, cystoscopy, detached retina repair, EGD, left cataract surgery, status post TURP. FAMILY HISTORY: Negative for renal disease or dialysis. SOCIAL HISTORY: Never smoked. Occasional alcohol. He is and lives with his . He is retired from long career in the academic work. He is from [place], but has been living in [place] for the last 7 years. REVIEW OF SYSTEMS: Positive for nausea, vomiting, hiccups, dry heaves, and very poor appetite for solid food for the last 4-5 days and was drinking lots of liquid. Otherwise, 12 systems reviewed and negative. ALLERGIES: None. MEDICATIONS: Home medication list was reviewed in detail. It does appear the patient was taking valsartan/hydrochlorothiazide for a long time. Other medications include allopurinol, tamsulosin, ruxolitinib, which is the chemotherapy for polycythemia rubra vera, dutasteride, vitamin D, Lipitor, aspirin. PHYSICAL EXAMINATION: GENERAL: Elderly white male who appears to be awake, alert, oriented x3. He was able to give me a detailed account of his medical history in great accuracy and detail. VITAL SIGNS: Blood pressure 159/70, pulse rate 81, temperature 36.9, 96% on room air. HEENT: Mucous membranes are moist. NECK: Supple. No jugular venous distention. CHEST: Bilaterally clear to auscultation. CARDIOVASCULAR: S1 and S2, regular. ABDOMEN: Soft, nontender. EXTREMITIES: Show no edema. LABORATORY TESTS: Reviewed in detail and is already detailed in HPI. Urine osmolality was 450 Urine sodium 58. Urine sediment at the time of admission was very active with ketones, blood, protein, lots of cells. CT abdomen and pelvis already reviewed. Serum sodium was as low as 114, this morning is 119 with appropriate rate of correction. Hemoglobin is 11.6, WBC count is 22,000, platelet count is 345,000. ASSESSMENT AND PLAN: A 76-year-old male with history of chronic hyponatremia, now admitted with nausea, vomiting, very poor appetite for the last 4-5 days and was found to have critical hyponatremia, for which I have been consulted. Hyponatremia. As stated in HPI, the patient has had low sodium for a while. In fact, his last four blood works show serum sodium of 123, 125, 132, and 135. He was still on hydrochlorothiazide, which is clearly contraindicated and should be stopped and never restarted. The effect of hydrochlorothiazide will be in the system for almost a week. This may or may not be the only cause of the hyponatremia. It is quite possible that he also has underlying SIADH making the hyponatremia problem worse. The reason why the sodium dropped even lower to 114 was for the last 4-5 days he has not been eating any solid food, thereby the osmolar load of his diet is extremely low, but he was trying to drink a lot of liquids, which made the situation worse. RECOMMENDATIONS: 1. Continue free fluid restriction 1500 mL per day. 2. Continue normal saline at 75 mL per hour. 3. Will repeat a urine osmolality and urine sodium as well as urinalysis today. 4. We can change the BMP measurement to every 8 hours at this point. 5. Stop hydrochlorothiazide and list it as allergy and never use any thiazide diuretics. However, if in the future, he needs to be on diuretics, he can be on loop diuretics as that is very, very unlikely to cause hyponatremia. 6. Encourage higher protein food. It looks like he is starting to eat better, so hopefully this will help getting the sodium up faster. 7. At this stage, this rate of sodium correction is reasonable as it has only gone up by 5 mEq in a 24-hour time period. Thank you very much for the consult. Job ID: [id number] NICK
[2022-04-08] MEDS: PANTOprazole 40 MG in SYRINGE 0 ML IV SCH (10:56)
[2022-04-08 11:22] LABS: BUN Creatinine Ratio 18.9 (10-20); Calcium 7.9 mg/dl (8.5-10.1); Creatinine Clr Calc Pharmacy 63.2 ml/min; Est GFR (African American) 94.5 ml/min; Est GFR (Non-African American) 81.5 ml/min; Potassium 3.4 mmol/L (3.5-5.1)
[2022-04-08 12:10] LABS: Appearance Urine Clear (Clear); Bilirubin Urine Negative (Negative); Blood Urine 3+ (Negative); Color Urine Yellow; Glucose Urine UA Negative (Negative); Ketones Urine Negative (Negative); Leukocyte Esterase Urine Trace (Negative); Nitrite Urine Negative (Negative); Protein Urine Negative (Negative); Specific Gravity Urine 1.005 (1.000-1.030); Urobilinogen Urine Negative (Negative); pH Urine 6.5 (4.5-7.5)
[2022-04-08 12:19] LABS: Bacteria Urine Automated Negative (Negative); Cast Urine Automated 0 /lpf (0-5); Epithelial Cell Urine Auto 0-5 /lpf (0-5); RBC Urine Automated 0-4 /hpf (0-4)
[2022-04-08] MEDS ORDERED: FUROSEMIDE INJ 20 MG/2 ML VIAL IV ONE (13:20)
[2022-04-08] MEDS ORDERED: POTASSIUM CHLORIDE PWD 20 MEQ PACK PO ONE (17:06)
[2022-04-08 19:53] LABS: Calcium 8.7 mg/dl (8.5-10.1); Potassium 3.8 mmol/L (3.5-5.1)
[2022-04-08 19:59] LABS: Creatinine Clr Calc Pharmacy 56.9 ml/min; Est GFR (African American) 83.2 ml/min; Est GFR (Non-African American) 71.8 ml/min
[2022-04-08] MEDS: ATORVASTATIN 10 MG TAB PO SCH (19:59)
[2022-04-08] MEDS: UREA (UREA-NA) 15 GM PACK PO SCH (19:59)
[2022-04-09 04:54] LABS: Hematocrit (blood only) 31.7 % (40.1-51.0); Hemoglobin 11.5 g/dl (14.0-18.0); Mean Corpuscular Hemoglobin 32.2 pg (25.0-34.0); Mean Corpuscular Hgb Conc 36.3 g/dL (32.0-36.0); Mean Corpuscular Volume 88.8 fL (80.0-100.0); Mean Platelet Volume 10.8 fL (9.4-12.4); Platelet Count 318 K/uL (130-400); RDW Coefficient of Variation 15.4 % (11.5-14.5); RDW Standard Deviation 49.9 fL (36.4-46.3); Red Blood Count 3.57 M/uL (4.63-6.08)
[2022-04-09 05:18] LABS: Calcium 8.6 mg/dl (8.5-10.1)
[2022-04-09 05:24] LABS: Creatinine Clr Calc Pharmacy 56.9 ml/min; Est GFR (African American) 83.2 ml/min; Est GFR (Non-African American) 71.8 ml/min; Phosphorus 1.9 mg/dl (2.5-4.9)
--- NOTE | 2022-04-09 07:41 | Hospitalist Progress Note ---
Date of Service April 09, 2022 Assessment & Plan (1) Hyponatremia: Plan: Patient with nausea, vomiting, decreased food intake. Reported increased fluid intake earlier in the week. S/p TURP 6 days ago. Headache times several days has since improved in ER CT head: No acute intracranial abnormality Na: 115 on admission In ER given 1L NSS Urine sodium, urine osmolality, urine osmolality, TSH Outpatient chart review had sodium of 135 on 03/06/2022 and 127 on 02/01/2022 BMP every 4 hours initially Na 119 (04/08 AM) Continued w/ normal saline 75 mils per hour, BMP every 8 hours. Pt also received urea and lasix. Na 127 this AM (04/09) Discussed again with nephrology, okay to discharge patient home, follow-up with BMP in 2 days. Stop HCTZ, list it as allergy FR 2000 mL (2) Nausea & vomiting: (3) Abdominal pain: Plan: 3 days nausea, vomiting. Diffuse abdominal discomfort s/p TURP 6 days ago WBC: 23 (has been 15-20 in the past 24 months per outpatient chart review). Lactate WNL. UA: 3+ blood, trace leuk esterase,> 30 RBC, 10-[address] abdomen pelvis: 1. Suggested TURP defect of the prostate. Mild adjacent inflammatory stranding with trace free pelvic fluid are likely expected postprocedural changes. 2. Partial distention of the urinary bladder with mild wall thickening. Air within the bladder lumen may be secondary to instrumentation versus infection. Correlate with urinalysis. 3. Trace pleural effusions with questioned mild pulmonary edema. 4. Moderate splenomegaly. 5. No bowel obstruction or bowel wall thickening. 6. Moderate colonic fecal retention. Treated for possible UTI Covered with cefepime, vancomycin empirically (4) BPH with obstruction/lower urinary tract symptoms: (5) S/P TURP: Plan: S/P GLTURP on 04/01/[address] Foster urology [facility] [place]. Was D/C with catheter that was removed On 04/05/2022 after voiding trial. Has been having intermittent hematuria, dysuria. Feels urine stream strength is same as it was pre-surgery. Had prophylaxis with 3 days of Bactrim UA: negat. nitrite, negt. bacteria Blood culture negat. 48 hrs In ER given cefepime Continued cefepime, vancomycin On gelastic, tamsulosin at home Discussed w/ Dr Foster, urology, on admission - that hematuria is to be expected, imaging studies are expected in his postoperative status. Recommended covering with broad-spectrum antibiotics until cultures resulted, 7 to 10-day course. If patient emptying bladder can avoid catheter however if has post residual void with drain. Urology consulted inpt as well Patient is urinating without difficulty, urine is clear yellow Cultures unrevealing Discussed with Dr. Foster, again today, given negative cultures so far. Recommends to discharge on antibiotics, for 5-day antibiotic coverage total. Follow-up with him as outpatient on April 15. (6) Hypertension: Plan: Stable Continue valsartan with holding parameters Hold / STOP HCTZ (7) Polycythemia vera: Plan: H/H: 13.9/36. PLT: 459 (was 480 on 03/25/2022) On ruxolitinib Follows with Hematology - Dr Pastor. Also follows [facility] [place], Dr Clark. Receives phlebotomy if hematocrit greater than 45 DVT Prophylaxis SCDs Full Code as per discussion with pt Follows with Dr Wheeler for routine care Admission and Anticipated Discharge Date Admission Date: April 07, 2022 Subjective Pt seen in follow up of n/v, recent TURP procedure, hyponatremia Patient is laying in bed, in no acute distress Says he is feeling much better, and is inquiring about discharge Abdominal discomfort has resolved, and patient has no difficulty with urination No fevers chills chest pain shortness of breath Sodium 127, discussed with nephrology, ok to discharge. Pt will have BMP re- checked in 2 days as outpt Review of Systems Review of Systems: All systems reviewed & are unremarkable except as noted in Subjective Physical Exam Physical Exam: General: no acute distress, WD/WN Head: normocephalic, atraumatic Eyes: PERRL, EOM's intact, conjunctiva non-injected, anicteric ENT: +Hard of hearing, normal inspection external ears, nose, mucous membranes mildly dry Neck: supple Lungs: clear, no respiratory distress, no wheezing/rhonchi/rales CV: RRR, no murmur, no pretibial edema Abd: normal BS, soft, non-tender Ext: no calf tenderness, moves extremities Neuro: A&O x 3, no focal deficits noted, normal affect Skin: warm, dry Results & Data Results & Data ([facility]) Vital Signs (Past 12 Hours) Vital Signs Temp Pulse Pulse Resp BP Pulse Ox O2 Del Method 04/09/22 00:00 65 04/08/22 23:30 36.8 C 64 18 116/59 L 96 Room Air 04/08/22 20:00 36.7 C 75 20 131/67 98 Room Air Laboratory Results 04/09/22 04/09/22 04/08/22 Range/Units 04:26 04:26 18:25 WBC 16.80 H (4.8-10.8) K/ul RBC 3.57 L (4.63-6.08) M/uL Hgb 11.5 L (14.0-18.0) g/dl Hct 31.7 L (40.1-51.0) % MCV 88.8 (80.0-100.0) fL MCH 32.2 (25.0-34.0) pg MCHC 36.3 H (32.0-36.0) g/dL RDW Std Deviation 49.9 H (36.4-46.3) fL RDW Coeff of Micki 15.4 H (11.5-14.5) % Plt Count 318 (130-400) K/uL MPV 10.8 (9.4-12.4) fL Sodium 127 L 124 L (136-145) mmol/L Potassium 4.0 3.8 (3.5-5.1) mmol/L Chloride 97 L 92 L (98-107) mmol/L Carbon Dioxide 27 24 (21-32) mmol/L Anion Gap 3 8 (3-11) BUN 25 H 16 (6-23) mg/dl Creatinine 1.00 1.00 (0.6-1.4) mg/dl Est Cr Clr Drug Dosing 56.9 56.9 ml/min Est GFR ( Amer) 83.2 83.2 ml/min Est GFR (Non-Af Amer) 71.8 71.8 ml/min BUN/Creatinine Ratio 25.0 H 16.0 (10-20) Glucose 107 H 133 H (70-99(Fasting)) mg/dl Calcium 8.6 8.7 (8.5-10.1) mg/dl Phosphorus 1.9 L (2.5-4.9) mg/dl Magnesium 2.0 (1.7-2.4) mg/dl Urine Color Urine Appearance (Clear) Urine pH (4.5-7.5) Ur Specific [place] (1.000-1.030) Urine Protein (Negative) Urine Glucose (UA) (Negative) Urine Ketones (Negative) Urine Blood (Negative) Urine Nitrite (Negative) Urine Bilirubin (Negative) Urine Urobilinogen (Negative) Ur Leukocyte Esterase (Negative) Urine WBC (Auto) (0-5) /hpf Urine RBC (Auto) (0-4) /hpf U Hyaline Cast (Auto) (0-5) /lpf U Epithel Cells (Auto) (0-5) /lpf Urine Bacteria (Auto) (Negative) Urine Osmolality (500-800) mOsm/kg 04/08/22 04/08/22 04/08/22 Range/Units 10:55 10:55 10:31 WBC (4.8-10.8) K/ul RBC (4.63-6.08) M/uL Hgb (14.0-18.0) g/dl Hct (40.1-51.0) % MCV (80.0-100.0) fL MCH (25.0-34.0) pg MCHC (32.0-36.0) g/dL RDW Std Deviation (36.4-46.3) fL RDW Coeff of Micki (11.5-14.5) % Plt Count (130-400) K/uL MPV (9.4-12.4) fL Sodium 119 L* (136-145) mmol/L Potassium 3.4 L (3.5-5.1) mmol/L Chloride 90 L (98-107) mmol/L Carbon Dioxide 24 (21-32) mmol/L Anion Gap 5 (3-11) BUN 17 (6-23) mg/dl Creatinine 0.90 (0.6-1.4) mg/dl Est Cr Clr Drug Dosing 63.2 ml/min Est GFR ( Amer) 94.5 ml/min Est GFR (Non-Af Amer) 81.5 ml/min BUN/Creatinine Ratio 18.9 (10-20) Glucose 154 H (70-99(Fasting)) mg/dl Calcium 7.9 L (8.5-10.1) mg/dl Phosphorus (2.5-4.9) mg/dl Magnesium (1.7-2.4) mg/dl Urine Color Yellow Urine Appearance Clear (Clear) Urine pH 6.5 (4.5-7.5) Ur Specific [place] 1.005 (1.000-1.030) Urine Protein Negative (Negative) Urine Glucose (UA) Negative (Negative) Urine Ketones Negative (Negative) Urine Blood 3+ H (Negative) Urine Nitrite Negative (Negative) Urine Bilirubin Negative (Negative) Urine Urobilinogen Negative (Negative) Ur Leukocyte Esterase Trace H (Negative) Urine WBC (Auto) 1-5 (0-5) /hpf Urine RBC (Auto) 0-4 (0-4) /hpf U Hyaline Cast (Auto) 0 (0-5) /lpf U Epithel Cells (Auto) 0-5 (0-5) /lpf Urine Bacteria (Auto) Negative (Negative) Urine Osmolality 114 L (500-800) mOsm/kg 04/08/22 Range/Units 07:04 WBC (4.8-10.8) K/ul RBC (4.63-6.08) M/uL Hgb (14.0-18.0) g/dl Hct (40.1-51.0) % MCV (80.0-100.0) fL MCH (25.0-34.0) pg MCHC (32.0-36.0) g/dL RDW Std Deviation (36.4-46.3) fL RDW Coeff of Micki (11.5-14.5) % Plt Count (130-400) K/uL MPV (9.4-12.4) fL Sodium 119 L* (136-145) mmol/L Potassium 3.7 (3.5-5.1) mmol/L Chloride 89 L (98-107) mmol/L Carbon Dioxide 24 (21-32) mmol/L Anion Gap 6 (3-11) BUN 16 (6-23) mg/dl Creatinine 0.85 (0.6-1.4) mg/dl Est Cr Clr Drug Dosing 67.0 ml/min Est GFR ( Amer) 96.7 ml/min Est GFR (Non-Af Amer) 83.5 ml/min BUN/Creatinine Ratio 18.8 (10-20) Glucose 85 (70-99(Fasting)) mg/dl Calcium 8.1 L (8.5-10.1) mg/dl Phosphorus 2.3 L (2.5-4.9) mg/dl Magnesium 1.8 (1.7-2.4) mg/dl Urine Color Urine Appearance (Clear) Urine pH (4.5-7.5) Ur Specific [place] (1.000-1.030) Urine Protein (Negative) Urine Glucose (UA) (Negative) Urine Ketones (Negative) Urine Blood (Negative) Urine Nitrite (Negative) Urine Bilirubin (Negative) Urine Urobilinogen (Negative) Ur Leukocyte Esterase (Negative) Urine WBC (Auto) (0-5) /hpf Urine RBC (Auto) (0-4) /hpf U Hyaline Cast (Auto) (0-5) /lpf U Epithel Cells (Auto) (0-5) /lpf Urine Bacteria (Auto) (Negative) Urine Osmolality (500-800) mOsm/kg Medications Administered Current Inpatient Medications Allopurinol (Allopurinol 100 Mg Tab) 100 mg PO DAILY SONIA Stop: 05/08/22 08:59 Last Admin: 04/08/22 09:17 Dose: 100 mg Aspirin (Aspirin 81 Mg Ectab) 81 mg PO QAM SONIA Stop: 05/08/22 08:59 Last Admin: 04/08/22 09:16 Dose: 81 mg Atorvastatin Calcium (Atorvastatin 10 Mg Tab) 10 mg PO PM SONIA Stop: 05/07/22 20:59 Last Admin: 04/08/22 19:59 Dose: 10 mg Docusate Sodium (Docusate Sodium 100 Mg Cap) 100 mg PO DAILY PRN PRN Reason: Constipation Stop: 05/07/22 19:28 Dutasteride (Pt Own Med - Dutasteride 0.5 Mg Capsule) 1 each PO DAILY SONIA Stop: 05/09/22 08:59 Cefepime HCl 2,000 mg/ Syringe 20 mls @ 5 mls/min IV Q12H SONIA; Protocol Stop: 04/17/22 09:59 Last Admin: 04/08/22 20:00 Dose: 5 mls/min Vancomycin HCl 1,250 mg/ (Sodium Chloride) 275 mls @ 200 mls/hr IV Q18H SONIA; Protocol Stop: 04/09/22 13:59 Last Infusion: 04/08/22 21:19 Dose: Infused Sodium Chloride (Nss 1000ml) 1,000 mls @ 100 mls/hr IV .Q10H [facility] Stop: 05/08/22 03:44 Last Admin: 04/08/22 23:20 Dose: 100 mls/hr Miscellaneous Information (Vancomycin Consult Active) 1 each N/A UD PRN PRN Reason: Consult Stop: 05/07/22 13:33 Pantoprazole Sodium (Pantoprazole 40 Mg Tab) 40 mg PO DAILY [facility]; Protocol Stop: 05/09/22 08:59 Polyethylene Glycol (Polyethylene (Miralax) 17 Gm Pack) 17 gm PO DAILY PRN PRN Reason: Constipation Stop: 05/07/22 19:28 Ruxolitinib (Ruxolitinib Phosphate) 1 each PO Q24H [facility] Stop: 05/08/22 08:59 Last Admin: 04/08/22 09:16 Dose: 1 each Tamsulosin HCl (Tamsulosin Hcl 0.4 Mg Cap) 0.4 mg PO DAILY [facility] Stop: 05/08/22 08:59 Last Admin: 04/08/22 09:16 Dose: 0.4 mg Urea (Urea (Urea-Na) 15 Gm Pack) 15 gm PO BID [facility] Stop: 05/08/22 20:59 Last Admin: 04/08/22 19:59 Dose: 15 gm Valsartan (Valsartan 80 Mg Tab) 320 mg PO QAM [facility] Stop: 05/08/22 08:59 Last Admin: 04/08/22 09:16 Dose: 320 mg Vitamin D (Cholecalciferol 1,000 Units 25 Mcg Tab) 1,000 units PO QAM [facility] Stop: 05/08/22 08:59 Last Admin: 04/08/22 09:59 Dose: 1,000 units
[2022-04-09] MEDS: UREA (UREA-NA) 15 GM PACK PO SCH (07:54)
[2022-04-09] MEDS: ASPIRIN 81 MG ECTAB PO SCH (08:56)
[2022-04-09] MEDS: CHOLECALCIFEROL 1,000 UNITS 25 MCG TAB PO SCH (08:56)
[2022-04-09] MEDS: TAMSULOSIN HCL 0.4 MG CAP PO SCH (08:56)
[2022-04-09] MEDS: RUXOLITINIB PHOSPHATE PO SCH (08:56)
[2022-04-09] MEDS: allopurinoL 100 MG TAB PO SCH ×2 (08:56→09:00)
[2022-04-09] MEDS: VALSARTAN 80 MG TAB PO SCH (08:56)
[2022-04-09] MEDS ORDERED: PANTOprazole 40 MG TAB PO SCH (09:00)
[2022-04-09] MEDS ORDERED: DUTASTERIDE 0.5 MG PO SCH (09:00)
--- NOTE | 2022-04-09 10:10 | Nephrology Progress Note ---
Date of Service April 09, 2022 Assessment & Plan Admission and Anticipated Discharge Date Admission Date: April 07, 2022 Subjective S--feels much better. NO new issues. na now 127 PHYSICAL EXAMINATION: GENERAL: Elderly white male who appears to be awake, alert, oriented x3. He was able to give me a detailed account of his medical history in great accuracy and detail. HEENT: Mucous membranes are moist. NECK: Supple. No jugular venous distention. CHEST: Bilaterally clear to auscultation. CARDIOVASCULAR: S1 and S2, regular. ABDOMEN: Soft, nontender. EXTREMITIES: Show no edema. LABORATORY TESTS: na now 127 ASSESSMENT AND PLAN: A 76-year-old male with history of chronic hyponatremia, now admitted with nausea, vomiting, very poor appetite for the last 4-5 days and was found to have critical hyponatremia, for which I have been consulted. Hyponatremia.As stated in HPI, the patient has had low sodium for a while. In fact, his last four blood works show serum sodium of 123, 125, 132, and 135. He was still on hydrochlorothiazide, which is clearly contraindicated and should be stopped and never restarted. The effect of hydrochlorothiazide will be in the system for almost a week. This may or may not be the only cause of the hyponatremia. It is quite possible that he also has underlying SIADH making the hyponatremia problem worse. The reason why the sodium dropped even lower to 114 was for the last 4-5 days he has not been eating any solid food, thereby the osmolar load of his diet is extremely low, but he was trying to drink a lot of liquids, which made the situation worse. RECOMMENDATIONS: 1. Continue free fluid restriction 2000 mL per day for discharge. No other meds needed 2. Stop hydrochlorothiazide and list it as allergy and never use any thiazide diuretics. However, if in the future, he needs to be on diuretics, he can be on loop diuretics as that is very, very unlikely to cause hyponatremia. 3. Encourage higher protein food. It looks like he is starting to eat better, so hopefully this will help getting the sodium up faster. 4 BMP in PCP office on . further advice after that Results & Data ([facility]) Vital Signs (Past 12 Hours) Vital Signs Temp Pulse Pulse Resp BP BP Pulse Ox 04/09/22 08:01 78 16 134/64 97 04/09/22 09:07 36.4 C L 04/09/22 00:00 65 04/08/22 23:30 36.8 C 64 18 116/59 L 96 O2 Del Method 04/09/22 08:01 Room Air 04/09/22 09:07 04/09/22 00:00 04/08/22 23:30 Room Air
[2022-04-09] MEDS: CEFEPIME 2,000 MG in SYRINGE 0 ML IV SCH ×2 (10:41→12:16)
[2022-04-09] MEDS: SODIUM CHLORIDE 0.9% 1000ML 1,000 ML IV SCH (12:15)
--- NOTE | 2022-04-09 12:32 | Discharge Summary ---
Date of Service April 09, 2022 Admission HPI Per Admitting Provider Patient is 76-year-old male with PMH BPH, HTN, polycythemia vera presented to ER with c/o nausea and vomiting x 3 days. History obtained from patient, patient's , chart review. S/P GLTURP for BPH on 04/01/[address] Foster urology [facility] [place]. Patient was discharged with catheter. Had 3 days of Bactrim.On 04/05/2022 Catheter was removed after voiding trial. Has been having intermittent hematuria. Feels urine stream strength is same as it was pre-surgery. Having some dysuria. Patient states hiccups started 4 days ago. Having several episodes daily lasting up to 1 hour. He wasn't eating much. He states having lower abdominal discomfort that he felt was normal post-op. Also c/o diffuse abdominal discomfort described as bloating and aching past couple of days. Reports did not eat for past 2 days. Previously was drinking more water. Past 2-3 days having vomiting. Last night had brown color emesis. Last BM yesterday described as softer. He took stool softener after surgery. States having generalized RHODES this week. Since here in the ER RHODES has resolved. Also c/o generalized weakness. Denies falls. Denies fever/chills, diaphoresis, hematochezia, melena, syncope, vision changes, neck pain, CP, SOB, orthopnea, palpitations, cough, sore throat, choking, otalgia, rhinorrhea, paresthesias, extremity edema, rashes. Admission Exam Per Admitting Provider General: no acute distress, WDWN Head: normocephalic, atraumatic Eyes: PERRL, EOM's intact, conjunctiva non-injected, anicteric ENT: +Hard of hearing, normal inspection external ears, nose, mucous membranes mildly dry Neck: supple, trachea midline Lungs: clear, no respiratory distress, no wheezing/rhonchi/rales CV: RRR, no murmur, no pretibial edema Abd: normal BS, soft, non-tender, No CVA tenderness to percussion Ext: no cyanosis, no calf tenderness Neuro: A&O x 3, no focal deficits noted, normal affect Skin: warm, dry Principal Diagnosis Severe hyponatremia Nausea/vomiting Recent TURP procedure Discharge Exam General: no acute distress, WD/WN Head: normocephalic, atraumatic Eyes: PERRL, EOM's intact, conjunctiva non-injected, anicteric ENT: +Hard of hearing, normal inspection external ears, nose, mucous membranes mildly dry Neck: supple Lungs: clear, no respiratory distress, no wheezing/rhonchi/rales CV: RRR, no murmur, no pretibial edema Abd: normal BS, soft, non-tender Ext: no calf tenderness, moves extremities Neuro: A&O x 3, no focal deficits noted, normal affect Skin: warm, dry Discharge Data Allergies Allergy/AdvReac Type Severity Reaction Status Date / Time No Known Drug Allergies Allergy Unknown Unknown Verified 04/09/22 11:15 Thiazides AdvReac Intermediate Hyponatremi Verified 04/09/22 11:15 a Consultations 04/07/22 10:03 ED Decision to Admit Stat 04/07/22 13:34 Consult Pneumatic Systems Operator Routine Consult Nephrology Routine 04/08/22 08:00 Consult Urology Routine Ordered Studies 04/07/22 06:41 CT abd pelvis IV con only Stat FINDINGS: Study is degraded by respiratory motion artifact. Trace pleural effusions. Mild intralobular septal thickening of the lung bases. No pneumatosis or pneumoperitoneum. Spleen is enlarged measuring up to 16.3 cm in length. Moderately atrophic pancreas. Punctate left adrenal calcification. Degenerative glands are otherwise unremarkable. Unremarkable gallbladder and liver. Patency of the hepatic and portal veins. Bilateral renal cysts measure up to approximately 9 cm on the right and 4.3 cm on the left. No hydronephrosis. Urinary bladder wall thickening with partial distention. A focus of air is noted within the urinary bladder lumen. Perivesicular stranding. Enlarged heterogeneous prostate measures up to approximately 5 cm. Suggested TURP defect of the prostate with mild adjacent inflammation and trace free pelvic fluid. No drainable fluid collection. Small fat filled left inguinal hernia. Atherosclerosis of the aorta. No lymphadenopathy. No bowel obstruction. Colonic diverticulosis. Moderate colonic fecal retention. The appendix is suboptimally visualized. No CT evidence of acute appendicitis. Unremarkable soft tissues. Degenerative changes of the spine, pelvis and hips. Subcentimeter sclerotic foci of the pelvis. There is severe intervertebral disc space narrowing at the L2-L3 level. IMPRESSION: 1. Suggested TURP defect of the prostate. Mild adjacent inflammatory stranding with trace free pelvic fluid are likely expected postprocedural changes. 2. Partial distention of the urinary bladder with mild wall thickening. Air within the bladder lumen may be secondary to instrumentation versus infection. Correlate with urinalysis. 3. Trace pleural effusions with questioned mild pulmonary edema. 4. Moderate splenomegaly. 5. No bowel obstruction or bowel wall thickening. 6. Moderate colonic fecal retention. 04/07/22 10:57 CT head/brain wo con Stat FINDINGS: No acute intracranial hemorrhage, midline shift, intracranial mass, hydrocephalus, territorial ischemia or abnormal extra-axial collection. Mild involutional changes. Subtle white matter hypodensities suggest chronic microvascular ischemic disease. The calvarium is intact. Prior bilateral lens repair. The paranasal sinuses, mastoid air cells, and middle ear cavities are clear. IMPRESSION: No acute intracranial abnormality. Hospital Course (1) Hyponatremia: Patient with nausea, vomiting, decreased food intake. Reported increased fluid intake earlier in the week. S/p TURP 6 days ago. Headache times several days has since improved in ER CT head: No acute intracranial abnormality Na: 115 on admission In ER given 1L NSS Urine sodium, urine osmolality, urine osmolality, TSH Outpatient chart review had sodium of 135 on 03/06/2022 and 127 on 02/01/2022 BMP every 4 hours initially Na 119 (04/08 AM) Pt also received urea and lasix. Na 127 this AM (04/09) Discussed again with nephrology, okay to discharge patient home, follow-up with BMP in 2 days. Stop HCTZ, list it as allergy FR 2000 mL (2) Nausea & vomiting: (3) Abdominal pain: 3 days nausea, vomiting. Diffuse abdominal discomfort s/p TURP 6 days ago WBC: 23 (has been 15-20 in the past 24 months per outpatient chart review). Lactate WNL. UA: 3+ blood, trace leuk esterase,> 30 RBC, 10-[address] abdomen pelvis: 1. Suggested TURP defect of the prostate. Mild adjacent inflammatory stranding with trace free pelvic fluid are likely expected postprocedural changes. 2. Partial distention of the urinary bladder with mild wall thickening. Air within the bladder lumen may be secondary to instrumentation versus infection. Correlate with urinalysis. 3. Trace pleural effusions with questioned mild pulmonary edema. 4. Moderate splenomegaly. 5. No bowel obstruction or bowel wall thickening. 6. Moderate colonic fecal retention. Treated for possible UTI Covered with cefepime, vancomycin empirically (4) BPH with obstruction/lower urinary tract symptoms: (5) S/P TURP: S/P GLTURP on 04/01/[address] Foster urology [facility]. Was D/C with catheter that was removed On 04/05/2022 after voiding trial. Has been having intermittent hematuria, dysuria. Feels urine stream strength is same as it was pre-surgery. Had prophylaxis with 3 days of Bactrim UA: negat. nitrite, negt. bacteria Blood culture negat. 48 hrs In ER given cefepime Continued cefepime, vancomycin On gelastic, tamsulosin at home Discussed w/ Dr Foster, urology, on admission - that hematuria is to be expected, imaging studies are expected in his postoperative status. Recommended covering with broad-spectrum antibiotics until cultures resulted, 7 to 10-day course. If patient emptying bladder can avoid catheter however if has post residual void with drain. Urology consulted inpt as well Patient is urinating without difficulty, urine is clear yellow Cultures unrevealing Discussed with Dr. Foster, again today, given negative cultures so far. Recommends to discharge on antibiotics, for 5-day antibiotic coverage total. Follow-up with him as outpatient on April 15. (6) Hypertension: Stable Continue valsartan with holding parameters Hold / STOP HCTZ (7) Polycythemia vera: H/H: 13.9/36. PLT: 459 (was 480 on 03/25/2022) On ruxolitinib Follows with Hematology - Dr Pastor. Also follows [facility], Dr Clark. Receives phlebotomy if hematocrit greater than 45 Total Time Total Time Spent Total Time Spent (In Minutes): 40 Discharge Plan Discharge Items Patient Disposition: Home - Self-Care Reason For Visit: HYPONATREMIA Discharge Diagnosis: Severe hyponatremia Nausea/vomiting Recent TURP procedure Activity: Per Instructions section Non-emergency contact: Primary Care Provider, Twisting Frame Operator and Urologist Call non-emergency contact if: you have any medication questions and your symptoms worsen Follow-up/Referrals: Reymundo Foster MD [Outside Practitioners] - (Date & Time 04/15/2022 2:45 PM Provider Reymundo Foster MD Department Urology, [facility] ) Pancho Pastor MD [Surgeon] - (Date & Time 04/12/2022 1:45 PM Provider Pancho Pastor MD Department Hematology/Oncology [facility] ) Severo Wheeler MD [Primary Care Provider] - (Date & Time 04/17/2022 11:00 AM Provider Severo Wheeler III, MD Department Family Practice [facility] ) Diet: Regular Fluids: 2000ml (8 cups) Diet Texture: Mechanical soft (ground) Addtl Attending Provider Instructions: Follow-up with primary care physician, urologist, and development analyst as scheduled. Finish antibiotic treatment, as prescribed. Do not take hydrochlorothiazide. Only take valsartan. If you are able to, check your blood pressure at home, and record your numbers. Then, your blood pressure medications can be further adjusted. You will need to check your sodium level in 2 days (on ). Restrict your fluid intake to 2 L. Pending Studies at Discharge: No Stand-Alone Forms: My [facility], Smoking Cessation Medications and DC Order Prescriptions: New valsartan [Diovan] 80 mg Tablet 320 mg PO QAM 30 Days Qty: 120 0RF pantoprazole 40 mg Tablet,Delayed Release (Dr/Ec) 40 mg PO DAILY Qty: 30 0RF ciprofloxacin HCl 500 mg tablet 500 mg PO BID 2 Days Qty: 4 0RF Continued betamethasone dipropionate 0.05 % ointment 1 applic topical DAILY PRN (Reason: skin irritation) Qty: 15 0RF dutasteride 0.5 mg Capsule 0.5 mg PO DAILY Jakafi 10 mg Tablet 10 mg PO DAILY atorvastatin 10 mg tablet 10 mg PO PM aspirin [Adult Aspirin Regimen] 81 mg tablet,delayed release (DR/EC) 81 mg PO QAM docusate sodium [Colace] 100 mg capsule 100 mg PO DAILY PRN (Reason: Constipation) cholecalciferol (vitamin D3) 50 mcg (2,000 unit) capsule 50 mcg PO QAM polyethylene glycol 3350 [Miralax] 17 gram/dose powder 17 g PO DAILY PRN (Reason: Constipation) allopurinol 100 mg tablet 100 mg PO DAILY tamsulosin 0.4 mg capsule 0.4 mg PO DAILY Discontinued valsartan-hydrochlorothiazide 320-25 mg Tablet 1 tab PO PM Discharge Orders: Discharge Order (Routine); Ordered 04/09/22 Ordered By: Jose Davidson Admission Data Admit Date/Time: 04/07/22 12:25 Attending Provider: Jose Davidson Admit Provider: Jose Davidson Primary Care Provider: Severo Wheeler Other Providers: Jose Davidson ; Manuel Philippe ; Krista Ho ; Oscar Grijalva
== END 2022-04-09 13:07 | disposition home or self-care (01) | DRG 640 ==
LOC: ED 06:18 → 1E 12:25